=== PATIENT | female | born 1960 | race Caucasian/White ===

== ENCOUNTER 2017-07-18 10:46 | Inpatient (IN) | payer OTHER ==
[2017-07-18] MEDS: SOD CHLORIDE 0.9% 500 ML IV (12:19)
[2017-07-18] MEDS: ONDANSETRON 4 MG INJ IV (12:19)
[2017-07-18 12:21] LABS: ABNORMAL IP MESSAGE 1; HEMATOCRIT 41.9 % (37.0-47.0); HEMOGLOBIN 13.9 g/dl (12.0-16.0); MEAN CORPUSCULAR HGB CONC 33.2 g/dl (32.0-37.0); MEAN CORPUSCULAR VOLUME 99.5 fl (82.0-101.0); MEAN PLATELET VOLUME 8.7 fl (7.4-10.4); PLATELET COUNT 476 10^3/UL (140-415); RED BLOOD COUNT 4.21 10^6/ul (4.20-5.40); RED CELL DISTRIBUTION WIDTH 15.3 % (11.5-14.5)
[2017-07-18 12:21] LABS: WHITE BLOOD COUNT 38.3 10^3/ul (4.8-10.8)
[2017-07-18 12:24] LABS: ADD MAN DIFF? YES; POSITIVE DIFF @See below
[2017-07-18 12:41] LABS: INR 1.29; PROTIME 16.3 Sec (11.9-14.9); PT RATIO 1.3
[2017-07-18 12:42] LABS: PARTIAL THROMBOPLASTIN TIME 35.5 Sec (25.0-35.0)
[2017-07-18 12:44] LABS: AMMONIA 25 umol/l (9-30)
[2017-07-18 12:44] LABS: ALANINE AMINOTRANSFERASE 31 IU/L (13-69); ALBUMIN 3.3 g/dl (3.3-4.9); ALBUMIN/GLOBULIN RATIO 0.76; ALKALINE PHOSPHATASE 283 IU/L (42-121); ANION GAP 21 (8-16); ASPARTATE AMINO TRANSFERASE 60 IU/L (15-46); BILIRUBIN,INDIRECT 0.7 mg/dl (0-1.1); BILIRUBIN,TOTAL 0.7 mg/dl (0.2-1.3); BLOOD UREA NITROGEN 19 mg/dl (7-20); CALCIUM 8.5 mg/dl (8.4-10.2); CARBON DIOXIDE 20 mmol/L (21-31); CHLORIDE 97 mmol/L (97-110); CREATININE 0.81 mg/dl (0.44-1.00); GLUCOSE 170 mg/dl (70-220); LIPASE 66 U/L (23-300); POTASSIUM 4.6 mmol/L (3.5-5.1); SODIUM 133 mmol/L (135-144); TOTAL PROTEIN 7.6 g/dl (6.1-8.1)
[2017-07-18 12:57] LABS: TROPONIN-I < 0.012 ng/ml (0.00-0.12)
[2017-07-18 12:59] LABS: ANISOCYTOSIS 2+ (0-0); BAND NEUTROPHILS #M 4.2 10^3/ul (0.0-0.6); BAND NEUTROPHILS % (M) 11 % (0-4); GIANT THROMBO% (M) 1 % (0-0); LYMPHOCYTES #M 1.5 10^3/ul (0.8-2.9); LYMPHOCYTES % (M) 4 % (15-51); MONOCYTE #M 1.5 10^3/ul (0.3-0.9); MONOCYTES % (M) 4 % (0-11); PLATELET ESTIMATE INCREASED; POIKILOCYTOSIS 1+ (0-0); POLYCHROMASIA 1+ (0-0); REACTIVE LYMPHOCYTES #M 0.3 10^3/ul (0.0-0.0); REACTIVE LYMPHOCYTES% (M) 1 % (0-0); SEG NEUT #M 32.2 10^3/ul (1.7-7.5); SEGMENTED NEUTROPHILS (M) % 80 % (39-77)
[2017-07-18] MEDS: LORAZEPAM 2 MG INJ IV ×2 (13:00→23:02)
[2017-07-18] MEDS: CEFEPIME 1GM/50 ML (PMX) 50 ML IVPB (15:00)
[2017-07-18] MEDS ORDERED: ACETAMINOPHEN 650 MG SUPP PR (15:30)
[2017-07-18] MEDS ORDERED: CEFOTAXIME 2 GM/50 ML (PMX) 50 ML IVPB ×2 (15:30→22:00)
[2017-07-18] MEDS ORDERED: NACL 0.9% 3 ML SYG IV (15:30)
[2017-07-18] MEDS: VANCOMYCIN 1 GM (PMX) 250 ML IVPB (16:04)
[2017-07-18] MEDS: RIFAXIMIN 550 MG TAB PO (21:00)
[2017-07-19] MEDS: CEFOTAXIME 2 GM/50 ML (PMX) 50 ML IVPB ×4 (00:09→22:31)
[2017-07-19 06:38] LABS: ADD MAN DIFF? NO
[2017-07-19 06:42] LABS: ABNORMAL IP MESSAGE 1; BASOPHIL # 0.1 10^3/ul (0.0-0.1); BASOPHILS % 0.2 % (0.0-2.0); HEMATOCRIT 37.7 % (37.0-47.0); HEMOGLOBIN 12.7 g/dl (12.0-16.0); LYMPHOCYTES # 1.1 10^3/ul (0.8-2.9); LYMPHOCYTES % 4.7 % (15.0-51.0); MEAN CORPUSCULAR HEMOGLOBIN 33.1 pg (29.0-33.0); MEAN CORPUSCULAR HGB CONC 33.7 g/dl (32.0-37.0); MEAN CORPUSCULAR VOLUME 98.2 fl (82.0-101.0); MONOCYTE # 1.5 10^3/ul (0.3-0.9); MONOCYTES % 6.8 % (0.0-11.0); NEUTROPHIL # 19.7 10^3/ul (1.6-7.5); NEUTROPHILS % 87.7 % (39.0-77.0); PLATELET COUNT 396 10^3/UL (140-415); RED BLOOD COUNT 3.84 10^6/ul (4.20-5.40); RED CELL DISTRIBUTION WIDTH 15.8 % (11.5-14.5)
[2017-07-19 06:42] LABS: WHITE BLOOD COUNT 22.5 10^3/ul (4.8-10.8)
[2017-07-19] MEDS: PANTOPRAZOLE 40 MG INJ IV (06:47)
[2017-07-19] MEDS: LORAZEPAM 2 MG INJ IV ×2 (06:48→16:20)
[2017-07-19 06:56] LABS: POSITIVE DIFF @See below
[2017-07-19 07:22] LABS: ALANINE AMINOTRANSFERASE 30 IU/L (13-69); ALBUMIN 2.8 g/dl (3.3-4.9); ALKALINE PHOSPHATASE 222 IU/L (42-121); ANION GAP 17 (8-16); ASPARTATE AMINO TRANSFERASE 58 IU/L (15-46); BILIRUBIN,INDIRECT 0.3 mg/dl (0-1.1); BILIRUBIN,TOTAL 0.3 mg/dl (0.2-1.3); BLOOD UREA NITROGEN 25 mg/dl (7-20); CALCIUM 8.1 mg/dl (8.4-10.2); CARBON DIOXIDE 22 mmol/L (21-31); CHLORIDE 100 mmol/L (97-110); CHOL/HDL RATIO 16.3 RATIO; CHOLESTEROL 261 mg/dl (100-200); CREATININE 1.22 mg/dl (0.44-1.00); GLUCOSE 127 mg/dl (70-220); HDL CHOLESTEROL 16 mg/dl (37-92); LDL CHOLESTEROL,CALCULATED 208 mg/dl; MAGNESIUM 2.3 mg/dl (1.7-2.5); PHOSPHORUS 5.1 mg/dl (2.5-4.9); SODIUM 134 mmol/L (135-144); TOTAL PROTEIN 6.8 g/dl (6.1-8.1); TRIGLYCERIDES 186 mg/dl (0-149)
[2017-07-19 07:53] LABS: HEMOGLOBIN A1C 4.4 % (0-5.9)
[2017-07-19] MEDS: RIFAXIMIN 550 MG TAB PO ×2 (09:00→21:00)
[2017-07-19] MEDS: SPIRONOLACTONE 50 MG TAB PO (09:00)
[2017-07-19] MEDS: FUROSEMIDE 40 MG INJ IV (09:20)
[2017-07-19 12:19] LABS: HAAIG REFLEX REFLEX FILED
[2017-07-19 13:45] LABS: HEPATITIS B SURFACE ANTIBODY NEGATIVE (NEGATIVE)
[2017-07-19 14:37] LABS: HEPATITIS B CORE ANTIBODY NEGATIVE (NEGATIVE); HEPATITIS C VIRAL ANTIBODY NEGATIVE (NEGATIVE)
[2017-07-19 14:54] LABS: HEPATITIS B SURFACE ANTIGEN NEGATIVE (NEGATIVE)
[2017-07-19] MEDS: LACTULOSE ENEMA 1,000 ML BTL PR ×2 (15:28→23:48)
[2017-07-20 05:07] LABS: ADD MAN DIFF? NO
[2017-07-20 05:10] LABS: WHITE BLOOD COUNT 19.5 10^3/ul (4.8-10.8)
[2017-07-20 05:10] LABS: BASOPHILS % 0.2 % (0.0-2.0); EOSINOPHILS % 0.1 % (0.0-7.0); HEMATOCRIT 33.8 % (37.0-47.0); HEMOGLOBIN 11.6 g/dl (12.0-16.0); LYMPHOCYTES # 1.3 10^3/ul (0.8-2.9); LYMPHOCYTES % 6.5 % (15.0-51.0); MEAN CORPUSCULAR HEMOGLOBIN 33.5 pg (29.0-33.0); MEAN CORPUSCULAR HGB CONC 34.3 g/dl (32.0-37.0); MEAN CORPUSCULAR VOLUME 97.7 fl (82.0-101.0); MEAN PLATELET VOLUME 8.6 fl (7.4-10.4); MONOCYTE # 1.4 10^3/ul (0.3-0.9); MONOCYTES % 7.2 % (0.0-11.0); NEUTROPHIL # 16.7 10^3/ul (1.6-7.5); NEUTROPHILS % 85.3 % (39.0-77.0); PLATELET COUNT 268 10^3/UL (140-415); RED BLOOD COUNT 3.46 10^6/ul (4.20-5.40); RED CELL DISTRIBUTION WIDTH 15.6 % (11.5-14.5)
[2017-07-20 05:31] LABS: ANION GAP 17 (8-16); BLOOD UREA NITROGEN 32 mg/dl (7-20); CALCIUM 7.6 mg/dl (8.4-10.2); CARBON DIOXIDE 22 mmol/L (21-31); CHLORIDE 103 mmol/L (97-110); CREATININE 1.63 mg/dl (0.44-1.00); GLUCOSE 99 mg/dl (70-220); MAGNESIUM 2.3 mg/dl (1.7-2.5); POTASSIUM 4.7 mmol/L (3.5-5.1); SODIUM 137 mmol/L (135-144)
[2017-07-20] MEDS: PANTOPRAZOLE 40 MG INJ IV (06:04)
[2017-07-20] MEDS: CEFOTAXIME 2 GM/50 ML (PMX) 50 ML IVPB ×3 (06:04→21:20)
[2017-07-20] MEDS: LACTULOSE ENEMA 1,000 ML BTL PR ×3 (06:05→21:21)
[2017-07-20] MEDS: RIFAXIMIN 550 MG TAB PO ×2 (08:27→21:19)
[2017-07-20] MEDS: SPIRONOLACTONE 50 MG TAB PO (08:27)
[2017-07-20] MEDS: FUROSEMIDE 40 MG INJ IV (08:27)
[2017-07-20 11:56] LABS: ANA SCREEN NEGATIVE (NEGATIVE)
[2017-07-20] MEDS: IOHEXOL 300MG/ML 150 ML BTL ×2 (12:23→14:54)
[2017-07-20 13:26] LABS: MITOCHONDRIAL TB NEGATIVE (NEGATIVE); SMOOTH MUSCLE AB SCREEN NEGATIVE (NEGATIVE)
[2017-07-20 14:29] LABS: HEPATITIS C VIRAL ANTIBODY NEGATIVE (NEGATIVE)
[2017-07-20] MEDS: morphine 2 MG INJ IV ×2 (14:48→21:19)
[2017-07-21] MEDS: PANTOPRAZOLE 40 MG INJ IV (05:43)
[2017-07-21] MEDS: CEFOTAXIME 2 GM/50 ML (PMX) 50 ML IVPB ×3 (05:43→21:36)
[2017-07-21] MEDS: LACTULOSE ENEMA 1,000 ML BTL PR ×2 (05:44→14:09)
[2017-07-21 06:14] LABS: ADD MAN DIFF? NO
[2017-07-21 06:20] LABS: BASOPHILS % 0.2 % (0.0-2.0); EOSINOPHILS % 0.1 % (0.0-7.0); HEMATOCRIT 37.8 % (37.0-47.0); HEMOGLOBIN 12.7 g/dl (12.0-16.0); LYMPHOCYTES # 1.2 10^3/ul (0.8-2.9); LYMPHOCYTES % 5.5 % (15.0-51.0); MEAN CORPUSCULAR HEMOGLOBIN 32.8 pg (29.0-33.0); MEAN CORPUSCULAR HGB CONC 33.6 g/dl (32.0-37.0); MEAN CORPUSCULAR VOLUME 97.7 fl (82.0-101.0); MONOCYTE # 1.4 10^3/ul (0.3-0.9); MONOCYTES % 6.4 % (0.0-11.0); NEUTROPHIL # 19.4 10^3/ul (1.6-7.5); PLATELET COUNT 308 10^3/UL (140-415); RED BLOOD COUNT 3.87 10^6/ul (4.20-5.40); RED CELL DISTRIBUTION WIDTH 15.5 % (11.5-14.5)
[2017-07-21 06:20] LABS: WHITE BLOOD COUNT 22.3 10^3/ul (4.8-10.8)
[2017-07-21 06:46] LABS: LACTIC ACID 1.8 mmol/L (0.5-2.0)
[2017-07-21 06:49] LABS: PARTIAL THROMBOPLASTIN TIME 35.3 Sec (25.0-35.0)
[2017-07-21 06:52] LABS: ALANINE AMINOTRANSFERASE 31 IU/L (13-69); ALBUMIN/GLOBULIN RATIO 0.78; ALKALINE PHOSPHATASE 230 IU/L (42-121); ANION GAP 21 (8-16); ASPARTATE AMINO TRANSFERASE 52 IU/L (15-46); BLOOD UREA NITROGEN 37 mg/dl (7-20); CALCIUM 7.8 mg/dl (8.4-10.2); CARBON DIOXIDE 19 mmol/L (21-31); CHLORIDE 102 mmol/L (97-110); CREATININE 1.96 mg/dl (0.44-1.00); GLUCOSE 93 mg/dl (70-220); MAGNESIUM 2.5 mg/dl (1.7-2.5); PHOSPHORUS 5.2 mg/dl (2.5-4.9); POTASSIUM 4.4 mmol/L (3.5-5.1); SODIUM 138 mmol/L (135-144); TOTAL PROTEIN 6.8 g/dl (6.1-8.1)
[2017-07-21 07:03] LABS: INR 1.48; PROTIME 18.2 Sec (11.9-14.9); PT RATIO 1.4
[2017-07-21 07:23] LABS: B-TYPE NATRIURETIC PEPTIDE 1260 PG/ML (0-125)
[2017-07-21 07:29] LABS: BILIRUBIN,INDIRECT 0.4 mg/dl (0-1.1); BILIRUBIN,TOTAL 0.4 mg/dl (0.2-1.3)
[2017-07-21] MEDS: RIFAXIMIN 550 MG TAB PO ×2 (08:43→20:54)
[2017-07-21] MEDS: SPIRONOLACTONE 50 MG TAB PO (08:43)
[2017-07-21] MEDS: FUROSEMIDE 40 MG INJ IV (08:43)
[2017-07-21] MEDS: morphine 2 MG INJ IV ×2 (11:06→15:07)
[2017-07-21] MEDS: ALBUMIN HUMAN 25% 50 ML IV (16:30)
[2017-07-21] MEDS: ONDANSETRON 4 MG INJ IV (21:05)
[2017-07-21] MEDS: ALBUMIN HUMAN 25% 100 ML IV (22:12)
[2017-07-22] MEDS: morphine 2 MG INJ IV ×3 (00:22→18:53)
[2017-07-22] MEDS: LACTULOSE 30ML CUP PO ×4 (00:22→17:26)
[2017-07-22] MEDS: ALBUMIN HUMAN 25% 50 ML IV (01:30)
[2017-07-22] MEDS: ALBUMIN HUMAN 25% 100 ML IV ×2 (04:43→17:25)
[2017-07-22] MEDS: CEFOTAXIME 2 GM/50 ML (PMX) 50 ML IVPB ×2 (05:44→21:48)
[2017-07-22] MEDS: PANTOPRAZOLE 40 MG INJ IV (05:44)
[2017-07-22 06:33] LABS: ADD MAN DIFF? NO
[2017-07-22 06:34] LABS: BASOPHILS % 0.2 % (0.0-2.0); EOSINOPHILS # 0.1 10^3/ul (0.0-0.5); EOSINOPHILS % 0.2 % (0.0-7.0); HEMATOCRIT 31.5 % (37.0-47.0); HEMOGLOBIN 10.6 g/dl (12.0-16.0); LYMPHOCYTES # 1.1 10^3/ul (0.8-2.9); LYMPHOCYTES % 5.5 % (15.0-51.0); MEAN CORPUSCULAR HEMOGLOBIN 33.2 pg (29.0-33.0); MEAN CORPUSCULAR HGB CONC 33.7 g/dl (32.0-37.0); MEAN CORPUSCULAR VOLUME 98.7 fl (82.0-101.0); MEAN PLATELET VOLUME 8.8 fl (7.4-10.4); MONOCYTE # 1.3 10^3/ul (0.3-0.9); MONOCYTES % 6.5 % (0.0-11.0); NEUTROPHIL # 17.8 10^3/ul (1.6-7.5); PLATELET COUNT 232 10^3/UL (140-415); RED BLOOD COUNT 3.19 10^6/ul (4.20-5.40); RED CELL DISTRIBUTION WIDTH 15.1 % (11.5-14.5)
[2017-07-22 06:34] LABS: WHITE BLOOD COUNT 20.4 10^3/ul (4.8-10.8)
[2017-07-22 07:01] LABS: INR 1.73; PROTIME 20.6 Sec (11.9-14.9); PT RATIO 1.6
[2017-07-22 07:02] LABS: PARTIAL THROMBOPLASTIN TIME 39.5 Sec (25.0-35.0)
[2017-07-22 07:14] LABS: ALANINE AMINOTRANSFERASE 29 IU/L (13-69); ALBUMIN 3.1 g/dl (3.3-4.9); ALBUMIN/GLOBULIN RATIO 0.88; ALKALINE PHOSPHATASE 172 IU/L (42-121); ANION GAP 21 (8-16); ASPARTATE AMINO TRANSFERASE 52 IU/L (15-46); BILIRUBIN,INDIRECT 0.3 mg/dl (0-1.1); BILIRUBIN,TOTAL 0.3 mg/dl (0.2-1.3); BLOOD UREA NITROGEN 42 mg/dl (7-20); CALCIUM 8.1 mg/dl (8.4-10.2); CARBON DIOXIDE 18 mmol/L (21-31); CHLORIDE 101 mmol/L (97-110); CREATININE 2.36 mg/dl (0.44-1.00); GLUCOSE 83 mg/dl (70-220); MAGNESIUM 2.4 mg/dl (1.7-2.5); PHOSPHORUS 5.8 mg/dl (2.5-4.9); POTASSIUM 4.3 mmol/L (3.5-5.1); SODIUM 136 mmol/L (135-144); TOTAL PROTEIN 6.6 g/dl (6.1-8.1)
[2017-07-22 07:15] LABS: B-TYPE NATRIURETIC PEPTIDE 1270 PG/ML (0-125)
[2017-07-22] MEDS: RIFAXIMIN 550 MG TAB PO ×3 (09:00→21:40)
[2017-07-22] MEDS: ONDANSETRON 4 MG INJ IV ×2 (09:26→18:53)
[2017-07-22] MEDS: CITRIC ACID/SODIUM CITRATE 15 ML CUP PO ×2 (12:55→21:40)
[2017-07-22] MEDS: LIDOCAINE 1% (MPF) 5 ML VIAL (16:23)
[2017-07-22 17:50] LABS: FLD MN% 45.8 %; FLD PMN% 54.2 %; FLD RBC 0 /uL; FLD WBC 238 /cmm
[2017-07-22 18:37] LABS: ALBUMIN < 1.0 g/dl (3.3-4.9)
[2017-07-22 18:38] LABS: FLUID AMYLASE < 30 U/L; FLUID GLUCOSE 87 mg/dl; FLUID LD 265 U/L; FLUID TOTAL PROTEIN 2.5 g/dl; FLUID TYPE PARACENTESIS FLUID
[2017-07-22 18:48] LABS: FLD TYPE PARACENTHESIS
[2017-07-22 18:48] LABS: FLD CLARITY CLEAR; FLD COLOR YELLOW
[2017-07-22] MEDS: BALSAM PERU/CASTOR OIL 60 GM TUBE TOP (21:40)
[2017-07-23] MEDS: LACTULOSE 30ML CUP PO ×5 (00:06→23:54)
[2017-07-23] MEDS: PANTOPRAZOLE 40 MG INJ IV (06:07)
[2017-07-23 07:01] LABS: ADD MAN DIFF? NO
[2017-07-23 07:08] LABS: WHITE BLOOD COUNT 19.8 10^3/ul (4.8-10.8)
[2017-07-23 07:08] LABS: BASOPHILS % 0.2 % (0.0-2.0); EOSINOPHILS # 0.1 10^3/ul (0.0-0.5); EOSINOPHILS % 0.3 % (0.0-7.0); HEMATOCRIT 34.7 % (37.0-47.0); HEMOGLOBIN 11.8 g/dl (12.0-16.0); LYMPHOCYTES # 0.8 10^3/ul (0.8-2.9); MEAN CORPUSCULAR VOLUME 96.9 fl (82.0-101.0); MEAN PLATELET VOLUME 9.7 fl (7.4-10.4); MONOCYTE # 1.2 10^3/ul (0.3-0.9); MONOCYTES % 6.1 % (0.0-11.0); NEUTROPHIL # 17.6 10^3/ul (1.6-7.5); NEUTROPHILS % 88.8 % (39.0-77.0); PLATELET COUNT 207 10^3/UL (140-415); RED BLOOD COUNT 3.58 10^6/ul (4.20-5.40); RED CELL DISTRIBUTION WIDTH 15.3 % (11.5-14.5)
[2017-07-23 07:46] LABS: AMMONIA 31 umol/l (9-30)
[2017-07-23 07:47] LABS: ALANINE AMINOTRANSFERASE 27 IU/L (13-69); ALBUMIN 2.7 g/dl (3.3-4.9); ALKALINE PHOSPHATASE 132 IU/L (42-121); ASPARTATE AMINO TRANSFERASE 34 IU/L (15-46); BILIRUBIN,INDIRECT 0.4 mg/dl (0-1.1); BILIRUBIN,TOTAL 0.4 mg/dl (0.2-1.3); TOTAL PROTEIN 5.7 g/dl (6.1-8.1)
[2017-07-23 07:51] LABS: ANION GAP 21 (8-16); BLOOD UREA NITROGEN 46 mg/dl (7-20); CARBON DIOXIDE 19 mmol/L (21-31); CHLORIDE 102 mmol/L (97-110); CREATININE 2.68 mg/dl (0.44-1.00); GLUCOSE 92 mg/dl (70-220); MAGNESIUM 2.4 mg/dl (1.7-2.5); POTASSIUM 4.5 mmol/L (3.5-5.1); SODIUM 137 mmol/L (135-144)
[2017-07-23] MEDS: CITRIC ACID/SODIUM CITRATE 15 ML CUP PO ×2 (08:40→21:49)
[2017-07-23] MEDS: RIFAXIMIN 550 MG TAB PO ×2 (08:40→21:49)
[2017-07-23] MEDS: BALSAM PERU/CASTOR OIL 60 GM TUBE TOP ×2 (08:41→21:50)
[2017-07-23] MEDS: CEFOTAXIME 2 GM/50 ML (PMX) 50 ML IVPB ×2 (10:05→21:49)
[2017-07-23] MEDS: ONDANSETRON 4 MG INJ IV (15:43)
[2017-07-23 17:15] LABS: ADD UMIC YES; UR ASCORBIC ACID NEGATIVE (NEGATIVE); UR BILIRUBIN (Dip) 2+ mg/dL (NEGATIVE); UR BLOOD (Dip) 2+ mg/dL (NEGATIVE); UR BUDDING YEAST FEW /HPF (NONE SEEN); UR CLARITY CLOUDY (CLEAR); UR COLOR AMBER (YELLOW); UR GLUCOSE (Dip) 1+ mg/dL (NEGATIVE); UR KETONES (Dip) TRACE mg/dL (NEGATIVE); UR LEUKOCYTE ESTERASE (Dip) 1+ Leu/ul (NEGATIVE); UR MUCUS MODERATE /HPF (NONE SEEN); UR NITRITE (Dip) NEGATIVE (NEGATIVE); UR RBC 8 /HPF (0-5); UR SPECIFIC GRAVITY (Dip) 1.029 (1.003-1.030); UR SQUAMOUS EPITHELIAL CELL FEW /HPF (FEW); UR TOTAL PROTEIN (Dip) 2+ mg/dl (NEGATIVE); UR UROBILINOGEN (Dip) NEGATIVE (NEGATIVE); UR WBC 10 /HPF (0-5)
[2017-07-24] MEDS: PANTOPRAZOLE 40 MG INJ IV (05:12)
[2017-07-24] MEDS: LACTULOSE 30ML CUP PO ×4 (05:12→23:59)
[2017-07-24 06:34] LABS: ADD MAN DIFF? NO
[2017-07-24 06:39] LABS: BASOPHILS % 0.2 % (0.0-2.0); EOSINOPHILS # 0.2 10^3/ul (0.0-0.5); EOSINOPHILS % 1.1 % (0.0-7.0); HEMATOCRIT 34.7 % (37.0-47.0); HEMOGLOBIN 11.9 g/dl (12.0-16.0); LYMPHOCYTES # 1.1 10^3/ul (0.8-2.9); LYMPHOCYTES % 5.8 % (15.0-51.0); MEAN CORPUSCULAR HEMOGLOBIN 32.7 pg (29.0-33.0); MEAN CORPUSCULAR HGB CONC 34.3 g/dl (32.0-37.0); MEAN CORPUSCULAR VOLUME 95.3 fl (82.0-101.0); MEAN PLATELET VOLUME 9.9 fl (7.4-10.4); MONOCYTE # 1.2 10^3/ul (0.3-0.9); MONOCYTES % 6.3 % (0.0-11.0); NEUTROPHIL # 15.9 10^3/ul (1.6-7.5); NEUTROPHILS % 85.9 % (39.0-77.0); PLATELET COUNT 191 10^3/UL (140-415); RED BLOOD COUNT 3.64 10^6/ul (4.20-5.40); RED CELL DISTRIBUTION WIDTH 15.5 % (11.5-14.5)
[2017-07-24 06:39] LABS: WHITE BLOOD COUNT 18.5 10^3/ul (4.8-10.8)
[2017-07-24 07:09] LABS: ANION GAP 21 (8-16); BLOOD UREA NITROGEN 48 mg/dl (7-20); CARBON DIOXIDE 20 mmol/L (21-31); CHLORIDE 101 mmol/L (97-110); CREATININE 3.12 mg/dl (0.44-1.00); GLUCOSE 100 mg/dl (70-220); POTASSIUM 3.5 mmol/L (3.5-5.1); SODIUM 138 mmol/L (135-144)
[2017-07-24] MEDS: BALSAM PERU/CASTOR OIL 60 GM TUBE TOP ×2 (09:01→20:42)
[2017-07-24] MEDS: CITRIC ACID/SODIUM CITRATE 15 ML CUP PO ×2 (09:01→20:37)
[2017-07-24] MEDS: RIFAXIMIN 550 MG TAB PO ×2 (09:01→20:37)
[2017-07-24] MEDS: CEFOTAXIME 2 GM/50 ML (PMX) 50 ML IVPB ×2 (09:01→20:37)
[2017-07-24] MEDS: ONDANSETRON 4 MG INJ IV ×2 (18:19→22:13)
[2017-07-24] MEDS: CARISOPRODOL 350 MG TAB PO (22:45)
[2017-07-25] MEDS: PANTOPRAZOLE 40 MG INJ IV (05:17)
[2017-07-25] MEDS: LACTULOSE 30ML CUP PO ×4 (05:20→17:25)
[2017-07-25 06:33] LABS: ADD MAN DIFF? NO
[2017-07-25 06:40] LABS: WHITE BLOOD COUNT 16.5 10^3/ul (4.8-10.8)
[2017-07-25 06:40] LABS: BASOPHILS % 0.1 % (0.0-2.0); EOSINOPHILS # 0.4 10^3/ul (0.0-0.5); EOSINOPHILS % 2.5 % (0.0-7.0); HEMATOCRIT 36.1 % (37.0-47.0); HEMOGLOBIN 12.2 g/dl (12.0-16.0); LYMPHOCYTES # 1.1 10^3/ul (0.8-2.9); LYMPHOCYTES % 6.9 % (15.0-51.0); MEAN CORPUSCULAR HEMOGLOBIN 32.4 pg (29.0-33.0); MEAN CORPUSCULAR HGB CONC 33.8 g/dl (32.0-37.0); MONOCYTE # 1.1 10^3/ul (0.3-0.9); MONOCYTES % 6.9 % (0.0-11.0); NEUTROPHIL # 13.7 10^3/ul (1.6-7.5); NEUTROPHILS % 82.8 % (39.0-77.0); PLATELET COUNT 152 10^3/UL (140-415); RED BLOOD COUNT 3.76 10^6/ul (4.20-5.40); RED CELL DISTRIBUTION WIDTH 15.1 % (11.5-14.5)
[2017-07-25 07:09] LABS: ANION GAP 19 (8-16); BLOOD UREA NITROGEN 47 mg/dl (7-20); CALCIUM 7.4 mg/dl (8.4-10.2); CARBON DIOXIDE 21 mmol/L (21-31); CHLORIDE 100 mmol/L (97-110); CREATININE 3.34 mg/dl (0.44-1.00); GLUCOSE 116 mg/dl (70-220); SODIUM 137 mmol/L (135-144)
[2017-07-25] MEDS: CEFOTAXIME 2 GM/50 ML (PMX) 50 ML IVPB ×2 (08:28→20:10)
[2017-07-25] MEDS: BALSAM PERU/CASTOR OIL 60 GM TUBE TOP ×2 (08:29→20:11)
[2017-07-25] MEDS: CITRIC ACID/SODIUM CITRATE 15 ML CUP PO ×2 (08:29→20:10)
[2017-07-25] MEDS: RIFAXIMIN 550 MG TAB PO ×2 (08:29→20:10)
[2017-07-25] MEDS: POTASSIUM CHLORIDE (SR) 20 MEQ TAB PO (09:07)
[2017-07-25] MEDS: morphine 2 MG INJ IV (09:39)
[2017-07-25] MEDS: CARISOPRODOL 350 MG TAB PO (15:34)
[2017-07-26] MEDS: LACTULOSE 30ML CUP PO ×4 (00:16→18:00)
[2017-07-26] MEDS: morphine 2 MG INJ IV ×4 (00:17→18:32)
[2017-07-26] MEDS: CARISOPRODOL 350 MG TAB PO (03:40)
[2017-07-26] MEDS: PANTOPRAZOLE 40 MG INJ IV (06:03)
[2017-07-26 06:10] LABS: ADD MAN DIFF? NO
[2017-07-26 06:24] LABS: BASOPHILS % 0.2 % (0.0-2.0); EOSINOPHILS # 0.5 10^3/ul (0.0-0.5); EOSINOPHILS % 2.8 % (0.0-7.0); HEMATOCRIT 37.2 % (37.0-47.0); HEMOGLOBIN 12.3 g/dl (12.0-16.0); LYMPHOCYTES # 1.2 10^3/ul (0.8-2.9); LYMPHOCYTES % 6.9 % (15.0-51.0); MEAN CORPUSCULAR HEMOGLOBIN 32.2 pg (29.0-33.0); MEAN CORPUSCULAR HGB CONC 33.1 g/dl (32.0-37.0); MEAN CORPUSCULAR VOLUME 97.4 fl (82.0-101.0); MEAN PLATELET VOLUME 9.3 fl (7.4-10.4); MONOCYTE # 1.3 10^3/ul (0.3-0.9); MONOCYTES % 7.3 % (0.0-11.0); NEUTROPHIL # 14.5 10^3/ul (1.6-7.5); NEUTROPHILS % 81.8 % (39.0-77.0); PLATELET COUNT 124 10^3/UL (140-415); RED BLOOD COUNT 3.82 10^6/ul (4.20-5.40)
[2017-07-26 06:24] LABS: WHITE BLOOD COUNT 17.8 10^3/ul (4.8-10.8)
[2017-07-26] MEDS: CITRIC ACID/SODIUM CITRATE 15 ML CUP PO ×2 (09:05→21:29)
[2017-07-26] MEDS: CEFOTAXIME 2 GM/50 ML (PMX) 50 ML IVPB ×2 (09:05→21:28)
[2017-07-26] MEDS: RIFAXIMIN 550 MG TAB PO ×2 (09:05→21:29)
[2017-07-26] MEDS: BALSAM PERU/CASTOR OIL 60 GM TUBE TOP ×2 (09:05→21:29)
[2017-07-26 09:27] LABS: BLOOD UREA NITROGEN 48 mg/dl (7-20); CALCIUM 7.8 mg/dl (8.4-10.2); CARBON DIOXIDE 21 mmol/L (21-31); CHLORIDE 99 mmol/L (97-110); CREATININE 3.54 mg/dl (0.44-1.00); GLUCOSE 126 mg/dl (70-220); SODIUM 135 mmol/L (135-144)
[2017-07-26 09:36] LABS: ANION GAP 18 (8-16); POTASSIUM 3.1 mmol/L (3.5-5.1)
[2017-07-26] MEDS: FLUCONAZOLE 200 MG TAB PO (09:55)
[2017-07-27] MEDS: LACTULOSE 30ML CUP PO ×4 (00:10→21:31)
[2017-07-27] MEDS: morphine 2 MG INJ IV ×4 (00:12→21:32)
[2017-07-27] MEDS: PANTOPRAZOLE 40 MG INJ IV (06:07)
[2017-07-27 06:22] LABS: ADD MAN DIFF? NO
[2017-07-27 06:30] LABS: BASOPHILS % 0.2 % (0.0-2.0); EOSINOPHILS # 0.4 10^3/ul (0.0-0.5); EOSINOPHILS % 1.8 % (0.0-7.0); HEMATOCRIT 36.8 % (37.0-47.0); HEMOGLOBIN 12.5 g/dl (12.0-16.0); LYMPHOCYTES # 1.2 10^3/ul (0.8-2.9); LYMPHOCYTES % 5.5 % (15.0-51.0); MEAN CORPUSCULAR HEMOGLOBIN 32.7 pg (29.0-33.0); MEAN CORPUSCULAR VOLUME 96.3 fl (82.0-101.0); MEAN PLATELET VOLUME 10.5 fl (7.4-10.4); MONOCYTE # 1.4 10^3/ul (0.3-0.9); MONOCYTES % 6.1 % (0.0-11.0); NEUTROPHILS % 85.4 % (39.0-77.0); PLATELET COUNT 115 10^3/UL (140-415); RED BLOOD COUNT 3.82 10^6/ul (4.20-5.40)
[2017-07-27 06:30] LABS: WHITE BLOOD COUNT 22.3 10^3/ul (4.8-10.8)
[2017-07-27 07:01] LABS: ANION GAP 20 (8-16); BLOOD UREA NITROGEN 48 mg/dl (7-20); CALCIUM 7.5 mg/dl (8.4-10.2); CARBON DIOXIDE 20 mmol/L (21-31); CHLORIDE 102 mmol/L (97-110); CREATININE 3.76 mg/dl (0.44-1.00); GLUCOSE 117 mg/dl (70-220); SODIUM 139 mmol/L (135-144)
[2017-07-27 07:45] LABS: POTASSIUM 2.7 mmol/L (3.5-5.1)
[2017-07-27] MEDS: CITRIC ACID/SODIUM CITRATE 15 ML CUP PO ×2 (09:50→21:30)
[2017-07-27] MEDS: CEFOTAXIME 2 GM/50 ML (PMX) 50 ML IVPB ×2 (09:50→21:30)
[2017-07-27] MEDS: BALSAM PERU/CASTOR OIL 60 GM TUBE TOP ×2 (09:52→21:32)
[2017-07-27] MEDS: RIFAXIMIN 550 MG TAB PO ×2 (09:52→21:31)
[2017-07-27] MEDS: FLUCONAZOLE 200 MG TAB PO (09:52)
[2017-07-27] MEDS: POTASSIUM CHLORIDE 50 ML IVPB ×3 (10:49→15:13)
[2017-07-27] MEDS: THIAMINE 100 MG TAB PO (17:19)
[2017-07-27] MEDS: POTASSIUM CHLORIDE 20 MEQ POWDER FOR ORAL SOLN PO ×2 (17:19→23:52)
[2017-07-28 06:09] LABS: ADD MAN DIFF? NO
[2017-07-28 06:14] LABS: WHITE BLOOD COUNT 23.5 10^3/ul (4.8-10.8)
[2017-07-28 06:14] LABS: ABNORMAL IP MESSAGE 1; BASOPHIL # 0.1 10^3/ul (0.0-0.1); BASOPHILS % 0.2 % (0.0-2.0); EOSINOPHILS # 0.3 10^3/ul (0.0-0.5); EOSINOPHILS % 1.4 % (0.0-7.0); HEMATOCRIT 35.1 % (37.0-47.0); HEMOGLOBIN 12.1 g/dl (12.0-16.0); LYMPHOCYTES # 1.2 10^3/ul (0.8-2.9); LYMPHOCYTES % 5.2 % (15.0-51.0); MEAN CORPUSCULAR HEMOGLOBIN 32.5 pg (29.0-33.0); MEAN CORPUSCULAR HGB CONC 34.5 g/dl (32.0-37.0); MEAN CORPUSCULAR VOLUME 94.4 fl (82.0-101.0); MEAN PLATELET VOLUME 10.6 fl (7.4-10.4); MONOCYTE # 1.5 10^3/ul (0.3-0.9); MONOCYTES % 6.4 % (0.0-11.0); NEUTROPHIL # 20.1 10^3/ul (1.6-7.5); NEUTROPHILS % 85.9 % (39.0-77.0); RED BLOOD COUNT 3.72 10^6/ul (4.20-5.40); RED CELL DISTRIBUTION WIDTH 14.9 % (11.5-14.5)
[2017-07-28 06:22] LABS: POSITIVE DIFF @See below
[2017-07-28 06:23] LABS: PLATELET COUNT 92 10^3/UL (140-415)
[2017-07-28] MEDS: PANTOPRAZOLE (EC) 40 MG TAB PO (06:29)
[2017-07-28] MEDS: morphine 2 MG INJ IV ×2 (06:35→20:33)
[2017-07-28 06:39] LABS: INR 1.62; PROTIME 19.6 Sec (11.9-14.9); PT RATIO 1.5
[2017-07-28 08:07] LABS: ALANINE AMINOTRANSFERASE 29 IU/L (13-69); ALBUMIN 2.2 g/dl (3.3-4.9); ALBUMIN/GLOBULIN RATIO 0.64; ALKALINE PHOSPHATASE 200 IU/L (42-121); ANION GAP 21 (8-16); ASPARTATE AMINO TRANSFERASE 37 IU/L (15-46); BILIRUBIN,INDIRECT 0.2 mg/dl (0-1.1); BILIRUBIN,TOTAL 0.2 mg/dl (0.2-1.3); BLOOD UREA NITROGEN 48 mg/dl (7-20); CALCIUM 8.2 mg/dl (8.4-10.2); CARBON DIOXIDE 17 mmol/L (21-31); CHLORIDE 104 mmol/L (97-110); CREATININE 3.96 mg/dl (0.44-1.00); GLUCOSE 108 mg/dl (70-220); MAGNESIUM 1.8 mg/dl (1.7-2.5); PHOSPHORUS 4.8 mg/dl (2.5-4.9); POTASSIUM 4.9 mmol/L (3.5-5.1); SODIUM 137 mmol/L (135-144); TOTAL PROTEIN 5.6 g/dl (6.1-8.1)
[2017-07-28] MEDS ORDERED: ENOXAPARIN 30 MG/0.3 ML SYG SC (09:00)
[2017-07-28] MEDS: POTASSIUM CHLORIDE 20 MEQ POWDER FOR ORAL SOLN PO ×3 (09:00→20:29)
[2017-07-28] MEDS: THIAMINE 100 MG TAB PO (09:09)
[2017-07-28] MEDS: LACTULOSE 30ML CUP PO ×2 (09:09→20:30)
[2017-07-28] MEDS: CITRIC ACID/SODIUM CITRATE 15 ML CUP PO ×2 (09:09→20:30)
[2017-07-28] MEDS: FLUCONAZOLE 200 MG TAB PO (09:09)
[2017-07-28] MEDS: RIFAXIMIN 550 MG TAB PO ×2 (09:11→20:29)
[2017-07-28] MEDS: HEPARIN 5,000 UNIT/0.5 ML VIAL SC ×2 (09:12→20:32)
[2017-07-28] MEDS: CEFOTAXIME 2 GM/50 ML (PMX) 50 ML IVPB ×2 (09:15→20:29)
[2017-07-28] MEDS: BALSAM PERU/CASTOR OIL 60 GM TUBE TOP ×2 (09:16→20:36)
[2017-07-28] MEDS: SOD CHLORIDE 0.9% 1,000 ML IV (14:46)
[2017-07-28] MEDS: BARIUM SULF 2% 450 ML BTL (BERRY SMOOTHIE) PO (16:00)
[2017-07-29] MEDS: PANTOPRAZOLE (EC) 40 MG TAB PO (05:50)
[2017-07-29 06:19] LABS: ADD MAN DIFF? NO
[2017-07-29 06:45] LABS: ABNORMAL IP MESSAGE 1; BASOPHIL # 0.1 10^3/ul (0.0-0.1); BASOPHILS % 0.2 % (0.0-2.0); EOSINOPHILS # 0.2 10^3/ul (0.0-0.5); EOSINOPHILS % 0.8 % (0.0-7.0); HEMOGLOBIN 11.4 g/dl (12.0-16.0); LYMPHOCYTES # 1.6 10^3/ul (0.8-2.9); MEAN CORPUSCULAR HGB CONC 34.5 g/dl (32.0-37.0); MEAN CORPUSCULAR VOLUME 92.7 fl (82.0-101.0); MEAN PLATELET VOLUME 11.4 fl (7.4-10.4); MONOCYTE # 1.7 10^3/ul (0.3-0.9); MONOCYTES % 6.4 % (0.0-11.0); NEUTROPHIL # 22.3 10^3/ul (1.6-7.5); NEUTROPHILS % 85.8 % (39.0-77.0); PLATELET COUNT 111 10^3/UL (140-415); RED BLOOD COUNT 3.56 10^6/ul (4.20-5.40); RED CELL DISTRIBUTION WIDTH 14.6 % (11.5-14.5)
[2017-07-29 07:00] LABS: ANION GAP 20 (8-16); BLOOD UREA NITROGEN 51 mg/dl (7-20); CALCIUM 8.2 mg/dl (8.4-10.2); CARBON DIOXIDE 21 mmol/L (21-31); CHLORIDE 103 mmol/L (97-110); CREATININE 3.99 mg/dl (0.44-1.00); GLUCOSE 89 mg/dl (70-220); SODIUM 138 mmol/L (135-144)
[2017-07-29 07:05] LABS: POTASSIUM 6.1 mmol/L (3.5-5.1)
[2017-07-29 07:10] LABS: POSITIVE DIFF @See below
[2017-07-29] MEDS: CEFOTAXIME 2 GM/50 ML (PMX) 50 ML IVPB ×2 (10:00→22:15)
[2017-07-29] MEDS: CITRIC ACID/SODIUM CITRATE 15 ML CUP PO ×2 (10:20→22:15)
[2017-07-29] MEDS: THIAMINE 100 MG TAB PO (10:20)
[2017-07-29] MEDS: LACTULOSE 30ML CUP PO ×2 (10:20→22:15)
[2017-07-29] MEDS: FLUCONAZOLE 200 MG TAB PO (10:21)
[2017-07-29] MEDS: RIFAXIMIN 550 MG TAB PO ×2 (10:21→22:15)
[2017-07-29] MEDS: BALSAM PERU/CASTOR OIL 60 GM TUBE TOP ×2 (10:22→22:17)
[2017-07-29] MEDS: SOD CHLORIDE 0.9% 1,000 ML IV (10:22)
[2017-07-29] MEDS: HEPARIN 5,000 UNIT/0.5 ML VIAL SC (10:23)
[2017-07-29 11:06] LABS: AMMONIA < 9 umol/l (9-30)
[2017-07-29] MEDS: NA POLYST SULFON 15 GM/60 ML BTL PO (12:14)
[2017-07-29] MEDS: IOHEXOL 14.3 MG(I)/ML (ADULT) BTL PO (14:30)
[2017-07-29] MEDS ORDERED: IOHEXOL 14.3 MG(I)/ML (ADULT) BTL PO (14:30)
[2017-07-29] MEDS: morphine 2 MG INJ IV (22:17)
[2017-07-30 00:03] LABS: POTASSIUM 5.2 mmol/L (3.5-5.1)
[2017-07-30] MEDS: SOD CHLORIDE 0.9% 1,000 ML IV ×2 (05:35→12:36)
[2017-07-30] MEDS: PANTOPRAZOLE (EC) 40 MG TAB PO (05:36)
[2017-07-30 08:09] LABS: ALANINE AMINOTRANSFERASE 34 IU/L (13-69); ALBUMIN/GLOBULIN RATIO 0.64; ALKALINE PHOSPHATASE 216 IU/L (42-121); ANION GAP 18 (8-16); ASPARTATE AMINO TRANSFERASE 41 IU/L (15-46); BILIRUBIN,INDIRECT 0.2 mg/dl (0-1.1); BILIRUBIN,TOTAL 0.2 mg/dl (0.2-1.3); BLOOD UREA NITROGEN 51 mg/dl (7-20); CALCIUM 8.1 mg/dl (8.4-10.2); CARBON DIOXIDE 20 mmol/L (21-31); CHLORIDE 104 mmol/L (97-110); CREATININE 3.85 mg/dl (0.44-1.00); GLUCOSE 86 mg/dl (70-220); POTASSIUM 4.6 mmol/L (3.5-5.1); SODIUM 137 mmol/L (135-144); TOTAL PROTEIN 5.1 g/dl (6.1-8.1)
[2017-07-30 08:10] LABS: AMMONIA < 9 umol/l (9-30)
[2017-07-30 08:32] LABS: ADD MAN DIFF? NO
[2017-07-30 08:34] LABS: PHOSPHORUS 5.2 mg/dl (2.5-4.9)
[2017-07-30 08:34] LABS: MAGNESIUM 1.7 mg/dl (1.7-2.5)
[2017-07-30 08:38] LABS: WHITE BLOOD COUNT 20.8 10^3/ul (4.8-10.8)
[2017-07-30 08:38] LABS: ABNORMAL IP MESSAGE 1; BASOPHILS % 0.2 % (0.0-2.0); EOSINOPHILS # 0.2 10^3/ul (0.0-0.5); EOSINOPHILS % 0.9 % (0.0-7.0); HEMATOCRIT 30.3 % (37.0-47.0); HEMOGLOBIN 10.8 g/dl (12.0-16.0); LYMPHOCYTES # 1.6 10^3/ul (0.8-2.9); LYMPHOCYTES % 7.7 % (15.0-51.0); MEAN CORPUSCULAR HEMOGLOBIN 32.4 pg (29.0-33.0); MEAN CORPUSCULAR HGB CONC 35.6 g/dl (32.0-37.0); MEAN PLATELET VOLUME 10.5 fl (7.4-10.4); MONOCYTE # 1.4 10^3/ul (0.3-0.9); MONOCYTES % 6.9 % (0.0-11.0); NEUTROPHIL # 17.4 10^3/ul (1.6-7.5); NEUTROPHILS % 83.7 % (39.0-77.0); PLATELET COUNT 98 10^3/UL (140-415); RED BLOOD COUNT 3.33 10^6/ul (4.20-5.40); RED CELL DISTRIBUTION WIDTH 14.6 % (11.5-14.5)
[2017-07-30] MEDS: BALSAM PERU/CASTOR OIL 60 GM TUBE TOP ×2 (09:00→20:44)
[2017-07-30] MEDS: CEFOTAXIME 2 GM/50 ML (PMX) 50 ML IVPB (09:26)
[2017-07-30] MEDS: LACTULOSE 30ML CUP PO (09:32)
[2017-07-30] MEDS: RIFAXIMIN 550 MG TAB PO ×2 (09:32→20:43)
[2017-07-30] MEDS: CITRIC ACID/SODIUM CITRATE 15 ML CUP PO ×2 (09:32→20:43)
[2017-07-30] MEDS: FLUCONAZOLE 200 MG TAB PO (09:32)
[2017-07-30] MEDS: THIAMINE 100 MG TAB PO (09:32)
[2017-07-30 11:33] LABS: ADD MAN DIFF? NO
[2017-07-30 11:36] LABS: BASOPHILS % 0.2 % (0.0-2.0); EOSINOPHILS # 0.1 10^3/ul (0.0-0.5); EOSINOPHILS % 0.7 % (0.0-7.0); HEMATOCRIT 31.1 % (37.0-47.0); HEMOGLOBIN 10.8 g/dl (12.0-16.0); LYMPHOCYTES # 1.5 10^3/ul (0.8-2.9); MEAN CORPUSCULAR HEMOGLOBIN 32.6 pg (29.0-33.0); MEAN CORPUSCULAR HGB CONC 34.7 g/dl (32.0-37.0); MEAN PLATELET VOLUME 11.1 fl (7.4-10.4); MONOCYTE # 1.2 10^3/ul (0.3-0.9); MONOCYTES % 6.2 % (0.0-11.0); NEUTROPHIL # 15.9 10^3/ul (1.6-7.5); NEUTROPHILS % 84.3 % (39.0-77.0); PLATELET COUNT 101 10^3/UL (140-415); RED BLOOD COUNT 3.31 10^6/ul (4.20-5.40); RED CELL DISTRIBUTION WIDTH 14.8 % (11.5-14.5)
[2017-07-30 11:36] LABS: WHITE BLOOD COUNT 18.9 10^3/ul (4.8-10.8)
[2017-07-30 11:59] LABS: INR 1.84; PROTIME 21.7 Sec (11.9-14.9); PT RATIO 1.7
[2017-07-30 12:00] LABS: PARTIAL THROMBOPLASTIN TIME 47.7 Sec (25.0-35.0)
[2017-07-30 12:06] LABS: MAGNESIUM 1.8 mg/dl (1.7-2.5)
[2017-07-30 12:06] LABS: PHOSPHORUS 5.3 mg/dl (2.5-4.9)
[2017-07-30 12:19] LABS: ALANINE AMINOTRANSFERASE 34 IU/L (13-69); ALBUMIN 2.1 g/dl (3.3-4.9); ALBUMIN/GLOBULIN RATIO 0.61; ALKALINE PHOSPHATASE 213 IU/L (42-121); AMYLASE 35 U/L (11-123); ANION GAP 19 (8-16); ASPARTATE AMINO TRANSFERASE 42 IU/L (15-46); BILIRUBIN,INDIRECT 0.1 mg/dl (0-1.1); BILIRUBIN,TOTAL 0.1 mg/dl (0.2-1.3); BLOOD UREA NITROGEN 51 mg/dl (7-20); CALCIUM 8.4 mg/dl (8.4-10.2); CARBON DIOXIDE 22 mmol/L (21-31); CHLORIDE 102 mmol/L (97-110); CREATININE 4.31 mg/dl (0.44-1.00); GLUCOSE 138 mg/dl (70-220); LIPASE 54 U/L (23-300); POTASSIUM 4.9 mmol/L (3.5-5.1); SODIUM 138 mmol/L (135-144); TOTAL PROTEIN 5.5 g/dl (6.1-8.1)
[2017-07-30] MEDS: LIDOCAINE 1% (MPF) 5 ML VIAL (13:32)
[2017-07-30 13:46] LABS: FLD MN% 55.6 %; FLD PMN% 44.4 %; FLD RBC 1000 /uL; FLD WBC 72 /cmm
[2017-07-30] MEDS: ALBUMIN HUMAN 25% 100 ML IV (13:57)
[2017-07-30] MEDS: morphine 2 MG INJ IV ×2 (14:27→23:42)
[2017-07-30 14:30] LABS: FLD TYPE PARACENTHESIS
[2017-07-30 14:30] LABS: FLD CLARITY CLEAR
[2017-07-30 14:31] LABS: FLD COLOR YELLOW
[2017-07-30] MEDS: MEROPENEM 500MG/50 ML (PMX) 50 ML IVPB (16:37)
[2017-07-31] MEDS: SOD CHLORIDE 0.9% 1,000 ML IV (02:00)
[2017-07-31] MEDS: PANTOPRAZOLE (EC) 40 MG TAB PO (05:29)
[2017-07-31] MEDS: morphine 2 MG INJ IV ×2 (05:29→12:46)
[2017-07-31 06:31] LABS: ADD MAN DIFF? NO
[2017-07-31 06:37] LABS: ABNORMAL IP MESSAGE 1; BASOPHILS % 0.2 % (0.0-2.0); EOSINOPHILS # 0.3 10^3/ul (0.0-0.5); EOSINOPHILS % 2.2 % (0.0-7.0); HEMATOCRIT 28.2 % (37.0-47.0); HEMOGLOBIN 9.9 g/dl (12.0-16.0); LYMPHOCYTES # 1.3 10^3/ul (0.8-2.9); LYMPHOCYTES % 10.5 % (15.0-51.0); MEAN CORPUSCULAR HEMOGLOBIN 32.6 pg (29.0-33.0); MEAN CORPUSCULAR HGB CONC 35.1 g/dl (32.0-37.0); MEAN CORPUSCULAR VOLUME 92.8 fl (82.0-101.0); MONOCYTE # 1.1 10^3/ul (0.3-0.9); MONOCYTES % 8.6 % (0.0-11.0); NEUTROPHIL # 9.7 10^3/ul (1.6-7.5); PLATELET COUNT 66 10^3/UL (140-415); RED BLOOD COUNT 3.04 10^6/ul (4.20-5.40)
[2017-07-31 06:37] LABS: WHITE BLOOD COUNT 12.5 10^3/ul (4.8-10.8)
[2017-07-31 06:52] LABS: POSITIVE DIFF @See below
[2017-07-31 06:56] LABS: INR 1.98; PT RATIO 1.8
[2017-07-31 06:57] LABS: PARTIAL THROMBOPLASTIN TIME 47.9 Sec (25.0-35.0)
[2017-07-31 07:03] LABS: LACTIC ACID 3.6 mmol/L (0.5-2.0)
[2017-07-31 07:10] LABS: B-TYPE NATRIURETIC PEPTIDE 5420 PG/ML (0-125)
[2017-07-31 07:21] LABS: ALANINE AMINOTRANSFERASE 29 IU/L (13-69); ALBUMIN 2.2 g/dl (3.3-4.9); ALBUMIN/GLOBULIN RATIO 0.73; ALKALINE PHOSPHATASE 193 IU/L (42-121); ANION GAP 18 (8-16); ASPARTATE AMINO TRANSFERASE 42 IU/L (15-46); BILIRUBIN,INDIRECT 0.1 mg/dl (0-1.1); BILIRUBIN,TOTAL 0.1 mg/dl (0.2-1.3); BLOOD UREA NITROGEN 49 mg/dl (7-20); CALCIUM 8.3 mg/dl (8.4-10.2); CARBON DIOXIDE 20 mmol/L (21-31); CHLORIDE 102 mmol/L (97-110); CREATININE 4.09 mg/dl (0.44-1.00); GLUCOSE 121 mg/dl (70-220); LIPASE 77 U/L (23-300); MAGNESIUM 1.6 mg/dl (1.7-2.5); PHOSPHORUS 4.6 mg/dl (2.5-4.9); POTASSIUM 4.2 mmol/L (3.5-5.1); SODIUM 136 mmol/L (135-144); TOTAL PROTEIN 5.2 g/dl (6.1-8.1)
[2017-07-31 07:26] LABS: AMYLASE < 30 U/L (11-123)
[2017-07-31] MEDS: SOD CHLORIDE 0.9% 500 ML IV (08:19)
[2017-07-31] MEDS: CITRIC ACID/SODIUM CITRATE 15 ML CUP PO ×2 (08:20→21:44)
[2017-07-31] MEDS: THIAMINE 100 MG TAB PO (08:20)
[2017-07-31] MEDS: RIFAXIMIN 550 MG TAB PO ×2 (08:20→21:44)
[2017-07-31] MEDS: FLUCONAZOLE 200 MG TAB PO (08:26)
[2017-07-31 10:27] LABS: AMMONIA < 9 umol/l (9-30)
[2017-07-31] MEDS: BALSAM PERU/CASTOR OIL 60 GM TUBE TOP ×2 (12:46→21:46)
[2017-07-31 16:14] LABS: LACTIC ACID 3.2 mmol/L (0.5-2.0)
[2017-07-31] MEDS: MEROPENEM 500MG/50 ML (PMX) 50 ML IVPB (16:42)
[2017-07-31] MEDS: ALBUMIN HUMAN 25% 100 ML IV (17:55)
[2017-08-01] MEDS: morphine 2 MG INJ IV (00:10)
[2017-08-01] MEDS: ALBUMIN HUMAN 25% 100 ML IV ×2 (01:43→09:03)
[2017-08-01 06:38] LABS: ADD MAN DIFF? NO
[2017-08-01] MEDS: PANTOPRAZOLE (EC) 40 MG TAB PO (06:38)
[2017-08-01 06:49] LABS: WHITE BLOOD COUNT 11.8 10^3/ul (4.8-10.8)
[2017-08-01 06:49] LABS: ABNORMAL IP MESSAGE 1; BASOPHILS % 0.2 % (0.0-2.0); EOSINOPHILS # 0.2 10^3/ul (0.0-0.5); EOSINOPHILS % 1.9 % (0.0-7.0); HEMATOCRIT 25.8 % (37.0-47.0); LYMPHOCYTES # 1.3 10^3/ul (0.8-2.9); LYMPHOCYTES % 10.6 % (15.0-51.0); MEAN CORPUSCULAR HEMOGLOBIN 32.8 pg (29.0-33.0); MEAN CORPUSCULAR HGB CONC 34.9 g/dl (32.0-37.0); MEAN CORPUSCULAR VOLUME 94.2 fl (82.0-101.0); MEAN PLATELET VOLUME 10.7 fl (7.4-10.4); MONOCYTES % 8.6 % (0.0-11.0); NEUTROPHIL # 9.3 10^3/ul (1.6-7.5); NEUTROPHILS % 78.4 % (39.0-77.0); RED BLOOD COUNT 2.74 10^6/ul (4.20-5.40); RED CELL DISTRIBUTION WIDTH 14.9 % (11.5-14.5)
[2017-08-01 06:58] LABS: PLATELET COUNT 53 10^3/UL (140-415); POSITIVE DIFF @See below
[2017-08-01 07:21] LABS: ALANINE AMINOTRANSFERASE 33 IU/L (13-69); ALBUMIN 2.6 g/dl (3.3-4.9); ALBUMIN/GLOBULIN RATIO 1.04; ALKALINE PHOSPHATASE 164 IU/L (42-121); ANION GAP 22 (8-16); ASPARTATE AMINO TRANSFERASE 35 IU/L (15-46); BILIRUBIN,INDIRECT 0.3 mg/dl (0-1.1); BILIRUBIN,TOTAL 0.3 mg/dl (0.2-1.3); BLOOD UREA NITROGEN 46 mg/dl (7-20); CALCIUM 8.5 mg/dl (8.4-10.2); CARBON DIOXIDE 19 mmol/L (21-31); CHLORIDE 99 mmol/L (97-110); CREATININE 4.06 mg/dl (0.44-1.00); GLUCOSE 129 mg/dl (70-220); POTASSIUM 3.5 mmol/L (3.5-5.1); SODIUM 136 mmol/L (135-144); TOTAL PROTEIN 5.1 g/dl (6.1-8.1)
[2017-08-01 07:22] LABS: MAGNESIUM 1.5 mg/dl (1.7-2.5)
[2017-08-01 07:22] LABS: PHOSPHORUS 4.1 mg/dl (2.5-4.9)
[2017-08-01] MEDS: CITRIC ACID/SODIUM CITRATE 15 ML CUP PO ×2 (09:00→21:04)
[2017-08-01] MEDS: THIAMINE 100 MG TAB PO (09:01)
[2017-08-01] MEDS: FLUCONAZOLE 200 MG TAB PO (09:01)
[2017-08-01] MEDS: RIFAXIMIN 550 MG TAB PO ×2 (09:01→21:04)
[2017-08-01] MEDS: BALSAM PERU/CASTOR OIL 60 GM TUBE TOP ×2 (09:04→22:20)
[2017-08-01] MEDS: MAGNESIUM SULFATE 2 GM/50 ML 50 ML IVPB (10:07)
[2017-08-01] MEDS ORDERED: BISACODYL (EC) 5 MG TAB PO (16:30)
[2017-08-01] MEDS ORDERED: MAGNESIUM CITRATE 300 ML BTL PO (17:30)
[2017-08-01] MEDS: MEROPENEM 500MG/50 ML (PMX) 50 ML IVPB (17:59)
[2017-08-01] MEDS ORDERED: POLYETHYLENE GLYCOL 3350 119 GM POWDER PO (18:30)
[2017-08-02 05:58] LABS: ADD MAN DIFF? NO
[2017-08-02] MEDS ORDERED: POLYETHYLENE GLYCOL 3350 119 GM POWDER PO (06:00)
[2017-08-02] MEDS: PANTOPRAZOLE (EC) 40 MG TAB PO (06:08)
[2017-08-02 06:10] LABS: WHITE BLOOD COUNT 12.5 10^3/ul (4.8-10.8)
[2017-08-02 06:10] LABS: ABNORMAL IP MESSAGE 1; BASOPHILS % 0.2 % (0.0-2.0); EOSINOPHILS # 0.2 10^3/ul (0.0-0.5); EOSINOPHILS % 1.7 % (0.0-7.0); HEMATOCRIT 24.6 % (37.0-47.0); HEMOGLOBIN 8.8 g/dl (12.0-16.0); LYMPHOCYTES % 7.6 % (15.0-51.0); MEAN CORPUSCULAR HEMOGLOBIN 32.1 pg (29.0-33.0); MEAN CORPUSCULAR HGB CONC 35.8 g/dl (32.0-37.0); MEAN CORPUSCULAR VOLUME 89.8 fl (82.0-101.0); MEAN PLATELET VOLUME 11.9 fl (7.4-10.4); MONOCYTE # 1.1 10^3/ul (0.3-0.9); MONOCYTES % 8.5 % (0.0-11.0); NEUTROPHIL # 10.2 10^3/ul (1.6-7.5); NEUTROPHILS % 81.5 % (39.0-77.0); PLATELET COUNT 50 10^3/UL (140-415); RED BLOOD COUNT 2.74 10^6/ul (4.20-5.40); RED CELL DISTRIBUTION WIDTH 14.5 % (11.5-14.5)
[2017-08-02 06:25] LABS: AMMONIA 19 umol/l (9-30)
[2017-08-02 06:34] LABS: ALANINE AMINOTRANSFERASE 28 IU/L (13-69); ALBUMIN 2.5 g/dl (3.3-4.9); ALBUMIN/GLOBULIN RATIO 1.04; ALKALINE PHOSPHATASE 159 IU/L (42-121); ANION GAP 19 (8-16); ASPARTATE AMINO TRANSFERASE 34 IU/L (15-46); BILIRUBIN,INDIRECT 0.4 mg/dl (0-1.1); BILIRUBIN,TOTAL 0.4 mg/dl (0.2-1.3); BLOOD UREA NITROGEN 49 mg/dl (7-20); CALCIUM 8.7 mg/dl (8.4-10.2); CARBON DIOXIDE 21 mmol/L (21-31); CHLORIDE 99 mmol/L (97-110); CREATININE 4.26 mg/dl (0.44-1.00); GLUCOSE 94 mg/dl (70-220); POSITIVE DIFF @See below; POTASSIUM 3.7 mmol/L (3.5-5.1); SODIUM 135 mmol/L (135-144); TOTAL PROTEIN 4.9 g/dl (6.1-8.1)
[2017-08-02 06:58] LABS: PHOSPHORUS 4.2 mg/dl (2.5-4.9)
[2017-08-02 06:58] LABS: MAGNESIUM 2.1 mg/dl (1.7-2.5)
[2017-08-02] MEDS ORDERED: BISACODYL (EC) 5 MG TAB PO (08:00)
[2017-08-02] MEDS: BALSAM PERU/CASTOR OIL 60 GM TUBE TOP ×2 (10:11→20:25)
[2017-08-02] MEDS: RIFAXIMIN 550 MG TAB PO ×2 (10:11→20:24)
[2017-08-02] MEDS: FLUCONAZOLE 200 MG TAB PO (10:11)
[2017-08-02] MEDS: THIAMINE 100 MG TAB PO (10:11)
[2017-08-02] MEDS: CITRIC ACID/SODIUM CITRATE 15 ML CUP PO ×2 (10:12→20:24)
[2017-08-02] MEDS: MEROPENEM 500MG/50 ML (PMX) 50 ML IVPB (16:37)
[2017-08-03 05:02] LABS: ADD MAN DIFF? NO
[2017-08-03 05:08] LABS: ABNORMAL IP MESSAGE 1; BASOPHIL # 0.1 10^3/ul (0.0-0.1); BASOPHILS % 0.3 % (0.0-2.0); EOSINOPHILS # 0.2 10^3/ul (0.0-0.5); EOSINOPHILS % 1.5 % (0.0-7.0); HEMATOCRIT 29.4 % (37.0-47.0); HEMOGLOBIN 10.3 g/dl (12.0-16.0); LYMPHOCYTES # 1.3 10^3/ul (0.8-2.9); LYMPHOCYTES % 8.8 % (15.0-51.0); MEAN CORPUSCULAR HEMOGLOBIN 32.2 pg (29.0-33.0); MEAN CORPUSCULAR VOLUME 91.9 fl (82.0-101.0); MONOCYTE # 1.3 10^3/ul (0.3-0.9); MONOCYTES % 8.6 % (0.0-11.0); NEUTROPHIL # 11.6 10^3/ul (1.6-7.5); NEUTROPHILS % 80.2 % (39.0-77.0); RED CELL DISTRIBUTION WIDTH 14.7 % (11.5-14.5)
[2017-08-03 05:08] LABS: WHITE BLOOD COUNT 14.5 10^3/ul (4.8-10.8)
[2017-08-03 05:42] LABS: ALANINE AMINOTRANSFERASE 34 IU/L (13-69); ALBUMIN 2.5 g/dl (3.3-4.9); ALBUMIN/GLOBULIN RATIO 0.92; ALKALINE PHOSPHATASE 196 IU/L (42-121); ANION GAP 20 (8-16); ASPARTATE AMINO TRANSFERASE 41 IU/L (15-46); BILIRUBIN,INDIRECT 0.4 mg/dl (0-1.1); BILIRUBIN,TOTAL 0.4 mg/dl (0.2-1.3); BLOOD UREA NITROGEN 51 mg/dl (7-20); CALCIUM 8.8 mg/dl (8.4-10.2); CARBON DIOXIDE 19 mmol/L (21-31); CHLORIDE 99 mmol/L (97-110); CREATININE 4.64 mg/dl (0.44-1.00); GLUCOSE 98 mg/dl (70-220); POTASSIUM 4.1 mmol/L (3.5-5.1); SODIUM 134 mmol/L (135-144); TOTAL PROTEIN 5.2 g/dl (6.1-8.1)
[2017-08-03 05:51] LABS: PLATELET COUNT 64 10^3/UL (140-415); POSITIVE DIFF @See below
[2017-08-03] MEDS: PANTOPRAZOLE (EC) 40 MG TAB PO (06:03)
[2017-08-03 07:12] LABS: MAGNESIUM 2.2 mg/dl (1.7-2.5)
[2017-08-03 07:12] LABS: PHOSPHORUS 4.7 mg/dl (2.5-4.9)
[2017-08-03] MEDS: CITRIC ACID/SODIUM CITRATE 15 ML CUP PO ×2 (09:28→20:28)
[2017-08-03] MEDS: RIFAXIMIN 550 MG TAB PO ×2 (09:28→20:28)
[2017-08-03] MEDS: FLUCONAZOLE 200 MG TAB PO (09:28)
[2017-08-03] MEDS: THIAMINE 100 MG TAB PO (09:29)
[2017-08-03] MEDS: BALSAM PERU/CASTOR OIL 60 GM TUBE TOP ×2 (09:30→20:28)
[2017-08-03] MEDS ORDERED: BISACODYL (EC) 5 MG TAB PO (16:00)
[2017-08-03] MEDS ORDERED: MAGNESIUM CITRATE 300 ML BTL PO (17:30)
[2017-08-03] MEDS: MEROPENEM 500MG/50 ML (PMX) 50 ML IVPB (17:48)
[2017-08-03] MEDS: PHYTONADIONE 10 MG in DEXTROSE 5% 50 ML IVPB (18:21)
[2017-08-03] MEDS ORDERED: POLYETHYLENE GLYCOL 3350 119 GM POWDER PO (18:30)
[2017-08-04] MEDS: PANTOPRAZOLE (EC) 40 MG TAB PO (05:44)
[2017-08-04] MEDS ORDERED: POLYETHYLENE GLYCOL 3350 119 GM POWDER PO (06:00)
[2017-08-04 06:15] LABS: ADD MAN DIFF? NO
[2017-08-04 06:23] LABS: ABNORMAL IP MESSAGE 1; BASOPHIL # 0.1 10^3/ul (0.0-0.1); BASOPHILS % 0.4 % (0.0-2.0); EOSINOPHILS # 0.3 10^3/ul (0.0-0.5); EOSINOPHILS % 2.2 % (0.0-7.0); HEMATOCRIT 27.2 % (37.0-47.0); HEMOGLOBIN 9.6 g/dl (12.0-16.0); LYMPHOCYTES # 1.4 10^3/ul (0.8-2.9); LYMPHOCYTES % 11.1 % (15.0-51.0); MEAN CORPUSCULAR HEMOGLOBIN 31.7 pg (29.0-33.0); MEAN CORPUSCULAR HGB CONC 35.3 g/dl (32.0-37.0); MEAN CORPUSCULAR VOLUME 89.8 fl (82.0-101.0); MEAN PLATELET VOLUME 12.9 fl (7.4-10.4); MONOCYTE # 1.1 10^3/ul (0.3-0.9); MONOCYTES % 8.9 % (0.0-11.0); NEUTROPHIL # 9.5 10^3/ul (1.6-7.5); NEUTROPHILS % 76.9 % (39.0-77.0); PLATELET COUNT 59 10^3/UL (140-415); RED BLOOD COUNT 3.03 10^6/ul (4.20-5.40); RED CELL DISTRIBUTION WIDTH 14.5 % (11.5-14.5)
[2017-08-04 06:23] LABS: WHITE BLOOD COUNT 12.4 10^3/ul (4.8-10.8)
[2017-08-04 06:34] LABS: POSITIVE DIFF @See below
[2017-08-04 06:58] LABS: PHOSPHORUS 4.5 mg/dl (2.5-4.9)
[2017-08-04 06:58] LABS: MAGNESIUM 2.1 mg/dl (1.7-2.5)
[2017-08-04 07:20] LABS: ALANINE AMINOTRANSFERASE 32 IU/L (13-69); ALBUMIN 2.3 g/dl (3.3-4.9); ALBUMIN/GLOBULIN RATIO 0.85; ALKALINE PHOSPHATASE 205 IU/L (42-121); ANION GAP 18 (8-16); ASPARTATE AMINO TRANSFERASE 42 IU/L (15-46); BILIRUBIN,INDIRECT 0.4 mg/dl (0-1.1); BILIRUBIN,TOTAL 0.4 mg/dl (0.2-1.3); BLOOD UREA NITROGEN 56 mg/dl (7-20); CALCIUM 8.9 mg/dl (8.4-10.2); CARBON DIOXIDE 22 mmol/L (21-31); CHLORIDE 99 mmol/L (97-110); CREATININE 4.73 mg/dl (0.44-1.00); GLUCOSE 94 mg/dl (70-220); POTASSIUM 3.9 mmol/L (3.5-5.1); SODIUM 135 mmol/L (135-144)
[2017-08-04] MEDS ORDERED: BISACODYL (EC) 5 MG TAB PO (08:00)
[2017-08-04] MEDS: THIAMINE 100 MG TAB PO (08:51)
[2017-08-04] MEDS: RIFAXIMIN 550 MG TAB PO ×2 (08:51→21:36)
[2017-08-04] MEDS: PHYTONADIONE 10 MG in DEXTROSE 5% 50 ML IVPB (08:51)
[2017-08-04] MEDS: FLUCONAZOLE 200 MG TAB PO (08:51)
[2017-08-04] MEDS: CITRIC ACID/SODIUM CITRATE 15 ML CUP PO ×2 (08:51→21:36)
[2017-08-04] MEDS: BISACODYL (EC) 5 MG TAB PO ×2 (08:52→18:16)
[2017-08-04] MEDS: BALSAM PERU/CASTOR OIL 60 GM TUBE TOP ×2 (09:00→21:37)
[2017-08-04] MEDS: PEG/ELECTROLYTES 4L BTL PO ×2 (11:59→18:16)
[2017-08-04] MEDS: morphine 2 MG INJ IV ×2 (14:59→22:10)
[2017-08-04] MEDS: MEROPENEM 500MG/50 ML (PMX) 50 ML IVPB (16:57)
[2017-08-05] MEDS: morphine 2 MG INJ IV ×2 (04:17→09:11)
[2017-08-05] MEDS: PANTOPRAZOLE (EC) 40 MG TAB PO (06:15)
[2017-08-05] MEDS: RIFAXIMIN 550 MG TAB PO ×2 (08:52→21:45)
[2017-08-05] MEDS: FLUCONAZOLE 200 MG TAB PO (08:52)
[2017-08-05] MEDS: CITRIC ACID/SODIUM CITRATE 15 ML CUP PO ×2 (08:52→21:44)
[2017-08-05] MEDS: THIAMINE 100 MG TAB PO (08:52)
[2017-08-05] MEDS: BALSAM PERU/CASTOR OIL 60 GM TUBE TOP ×2 (08:53→21:45)
[2017-08-05 10:17] LABS: ADD MAN DIFF? NO
[2017-08-05 10:26] LABS: ABNORMAL IP MESSAGE 1; BASOPHIL # 0.1 10^3/ul (0.0-0.1); BASOPHILS % 0.4 % (0.0-2.0); EOSINOPHILS # 0.3 10^3/ul (0.0-0.5); EOSINOPHILS % 2.4 % (0.0-7.0); HEMATOCRIT 29.8 % (37.0-47.0); HEMOGLOBIN 10.4 g/dl (12.0-16.0); LYMPHOCYTES # 1.8 10^3/ul (0.8-2.9); LYMPHOCYTES % 12.8 % (15.0-51.0); MEAN CORPUSCULAR HGB CONC 34.9 g/dl (32.0-37.0); MEAN CORPUSCULAR VOLUME 91.7 fl (82.0-101.0); MONOCYTE # 1.1 10^3/ul (0.3-0.9); MONOCYTES % 8.2 % (0.0-11.0); NEUTROPHIL # 10.5 10^3/ul (1.6-7.5); NEUTROPHILS % 75.6 % (39.0-77.0); PLATELET COUNT 54 10^3/UL (140-415); RED BLOOD COUNT 3.25 10^6/ul (4.20-5.40); RED CELL DISTRIBUTION WIDTH 14.8 % (11.5-14.5)
[2017-08-05 10:26] LABS: WHITE BLOOD COUNT 13.9 10^3/ul (4.8-10.8)
[2017-08-05 10:27] LABS: POSITIVE DIFF @See below
[2017-08-05 10:41] LABS: ALANINE AMINOTRANSFERASE 29 IU/L (13-69); ALBUMIN 2.4 g/dl (3.3-4.9); ALBUMIN/GLOBULIN RATIO 0.92; ALKALINE PHOSPHATASE 249 IU/L (42-121); ANION GAP 21 (8-16); ASPARTATE AMINO TRANSFERASE 44 IU/L (15-46); BILIRUBIN,INDIRECT 0.4 mg/dl (0-1.1); BILIRUBIN,TOTAL 0.4 mg/dl (0.2-1.3); BLOOD UREA NITROGEN 55 mg/dl (7-20); CALCIUM 8.7 mg/dl (8.4-10.2); CARBON DIOXIDE 19 mmol/L (21-31); CHLORIDE 98 mmol/L (97-110); CREATININE 4.77 mg/dl (0.44-1.00); GLUCOSE 96 mg/dl (70-220); POTASSIUM 3.7 mmol/L (3.5-5.1); SODIUM 134 mmol/L (135-144)
[2017-08-05 10:47] LABS: INR 1.31; PROTIME 16.5 Sec (11.9-14.9); PT RATIO 1.3
[2017-08-05 10:48] LABS: PARTIAL THROMBOPLASTIN TIME 45.6 Sec (25.0-35.0)
[2017-08-05 10:50] LABS: PHOSPHORUS 5.1 mg/dl (2.5-4.9)
[2017-08-05 10:52] LABS: AMMONIA < 9 umol/l (9-30)
[2017-08-05] MEDS: MEROPENEM 500MG/50 ML (PMX) 50 ML IVPB (17:07)
[2017-08-05] MEDS: DIPHENHYDRAMINE 50 MG INJ IV (17:11)
[2017-08-06] MEDS: PANTOPRAZOLE (EC) 40 MG TAB PO (05:05)
[2017-08-06 05:53] LABS: ADD MAN DIFF? NO
[2017-08-06 05:56] LABS: WHITE BLOOD COUNT 13.6 10^3/ul (4.8-10.8)
[2017-08-06 05:56] LABS: ABNORMAL IP MESSAGE 1; BASOPHIL # 0.1 10^3/ul (0.0-0.1); BASOPHILS % 0.4 % (0.0-2.0); EOSINOPHILS # 0.3 10^3/ul (0.0-0.5); EOSINOPHILS % 2.2 % (0.0-7.0); HEMATOCRIT 28.1 % (37.0-47.0); HEMOGLOBIN 9.8 g/dl (12.0-16.0); LYMPHOCYTES # 1.9 10^3/ul (0.8-2.9); LYMPHOCYTES % 14.3 % (15.0-51.0); MEAN CORPUSCULAR HGB CONC 34.9 g/dl (32.0-37.0); MEAN CORPUSCULAR VOLUME 91.8 fl (82.0-101.0); MONOCYTE # 1.1 10^3/ul (0.3-0.9); MONOCYTES % 7.8 % (0.0-11.0); NEUTROPHIL # 10.2 10^3/ul (1.6-7.5); RED BLOOD COUNT 3.06 10^6/ul (4.20-5.40); RED CELL DISTRIBUTION WIDTH 15.2 % (11.5-14.5)
[2017-08-06 06:24] LABS: PHOSPHORUS 5.3 mg/dl (2.5-4.9)
[2017-08-06 06:32] LABS: ALANINE AMINOTRANSFERASE 28 IU/L (13-69); ALBUMIN 2.3 g/dl (3.3-4.9); ALBUMIN/GLOBULIN RATIO 0.82; ALKALINE PHOSPHATASE 244 IU/L (42-121); ANION GAP 21 (8-16); ASPARTATE AMINO TRANSFERASE 41 IU/L (15-46); BILIRUBIN,INDIRECT 0.4 mg/dl (0-1.1); BILIRUBIN,TOTAL 0.4 mg/dl (0.2-1.3); BLOOD UREA NITROGEN 60 mg/dl (7-20); CARBON DIOXIDE 20 mmol/L (21-31); CHLORIDE 97 mmol/L (97-110); CREATININE 5.05 mg/dl (0.44-1.00); GLUCOSE 98 mg/dl (70-220); POTASSIUM 4.1 mmol/L (3.5-5.1); SODIUM 134 mmol/L (135-144); TOTAL PROTEIN 5.1 g/dl (6.1-8.1)
[2017-08-06 07:19] LABS: PLATELET COUNT 69 10^3/UL (140-415); POSITIVE DIFF @See below
[2017-08-06] MEDS: CITRIC ACID/SODIUM CITRATE 15 ML CUP PO ×2 (09:36→20:41)
[2017-08-06] MEDS: BALSAM PERU/CASTOR OIL 60 GM TUBE TOP ×2 (09:36→20:42)
[2017-08-06] MEDS: THIAMINE 100 MG TAB PO (09:36)
[2017-08-06] MEDS: RIFAXIMIN 550 MG TAB PO ×2 (09:36→20:41)
[2017-08-06] MEDS: ALBUMIN HUMAN 25% 100 ML IV ×2 (09:43→17:09)
[2017-08-06 11:28] LABS: ADD UMIC YES; UR AMORPHOUS CRYSTAL FEW /HPF (NONE SEEN); UR ASCORBIC ACID NEGATIVE (NEGATIVE); UR BACTERIA FEW /HPF (NONE SEEN); UR BILIRUBIN (Dip) NEGATIVE (NEGATIVE); UR BLOOD (Dip) 3+ mg/dL (NEGATIVE); UR CLARITY CLOUDY (CLEAR); UR COLOR YELLOW (YELLOW); UR GLUCOSE (Dip) 1+ mg/dL (NEGATIVE); UR KETONES (Dip) NEGATIVE (NEGATIVE); UR LEUKOCYTE ESTERASE (Dip) 3+ Leu/ul (NEGATIVE); UR NITRITE (Dip) NEGATIVE (NEGATIVE); UR NONSQUAMOUS EPITHELIAL CELL 2 /HPF (NONE SEEN); UR RBC 129 /HPF (0-5); UR SPECIFIC GRAVITY (Dip) 1.012 (1.003-1.030); UR TOTAL PROTEIN (Dip) 2+ mg/dl (NEGATIVE); UR UROBILINOGEN (Dip) NEGATIVE (NEGATIVE); UR WBC 40 /HPF (0-5)
[2017-08-06] MEDS: DIPHENHYDRAMINE 50 MG INJ IV (22:21)
[2017-08-07] MEDS: ALBUMIN HUMAN 25% 100 ML IV (00:49)
[2017-08-07] MEDS: PANTOPRAZOLE (EC) 40 MG TAB PO (05:26)
[2017-08-07] MEDS: BALSAM PERU/CASTOR OIL 60 GM TUBE TOP ×2 (09:04→21:34)
[2017-08-07] MEDS: CITRIC ACID/SODIUM CITRATE 15 ML CUP PO ×2 (09:05→21:32)
[2017-08-07] MEDS: RIFAXIMIN 550 MG TAB PO ×2 (09:05→21:32)
[2017-08-07] MEDS: THIAMINE 100 MG TAB PO (09:05)
[2017-08-07] MEDS: morphine 2 MG INJ IV (09:13)
[2017-08-07 12:15] LABS: ANION GAP 21 (8-16); BLOOD UREA NITROGEN 61 mg/dl (7-20); CARBON DIOXIDE 20 mmol/L (21-31); CHLORIDE 97 mmol/L (97-110); GLUCOSE 89 mg/dl (70-220); POTASSIUM 3.6 mmol/L (3.5-5.1); SODIUM 134 mmol/L (135-144)
[2017-08-07 12:44] LABS: AMMONIA 32 umol/l (9-30)
[2017-08-07] MEDS: ZYVOX 600 MG TAB PO ×2 (15:24→21:32)
[2017-08-07] MEDS: FOSFOMYCIN 3 GM PACKET PO (15:24)
[2017-08-08] MEDS: PANTOPRAZOLE (EC) 40 MG TAB PO (05:45)
[2017-08-08 08:00] LABS: ADD MAN DIFF? NO; HAAIG REFLEX REFLEX FILED
[2017-08-08 08:08] LABS: WHITE BLOOD COUNT 13.2 10^3/ul (4.8-10.8)
[2017-08-08 08:08] LABS: ABNORMAL IP MESSAGE 1; BASOPHIL # 0.1 10^3/ul (0.0-0.1); BASOPHILS % 0.4 % (0.0-2.0); EOSINOPHILS # 0.2 10^3/ul (0.0-0.5); EOSINOPHILS % 1.4 % (0.0-7.0); HEMATOCRIT 26.2 % (37.0-47.0); HEMOGLOBIN 9.2 g/dl (12.0-16.0); LYMPHOCYTES # 1.2 10^3/ul (0.8-2.9); LYMPHOCYTES % 9.4 % (15.0-51.0); MEAN CORPUSCULAR HEMOGLOBIN 31.9 pg (29.0-33.0); MEAN CORPUSCULAR HGB CONC 35.1 g/dl (32.0-37.0); MONOCYTE # 1.2 10^3/ul (0.3-0.9); MONOCYTES % 8.7 % (0.0-11.0); NEUTROPHIL # 10.5 10^3/ul (1.6-7.5); NEUTROPHILS % 79.5 % (39.0-77.0); PLATELET COUNT 55 10^3/UL (140-415); RED BLOOD COUNT 2.88 10^6/ul (4.20-5.40); RED CELL DISTRIBUTION WIDTH 14.9 % (11.5-14.5)
[2017-08-08 08:12] LABS: POSITIVE DIFF @See below
[2017-08-08] MEDS: CITRIC ACID/SODIUM CITRATE 15 ML CUP PO ×2 (08:36→20:48)
[2017-08-08] MEDS: RIFAXIMIN 550 MG TAB PO ×2 (08:36→20:49)
[2017-08-08] MEDS: THIAMINE 100 MG TAB PO (08:36)
[2017-08-08] MEDS: BALSAM PERU/CASTOR OIL 60 GM TUBE TOP ×2 (08:36→20:49)
[2017-08-08] MEDS: ZYVOX 600 MG TAB PO ×2 (08:36→20:49)
[2017-08-08 08:44] LABS: ANION GAP 23 (8-16); BLOOD UREA NITROGEN 63 mg/dl (7-20); CALCIUM 9.6 mg/dl (8.4-10.2); CARBON DIOXIDE 24 mmol/L (21-31); CHLORIDE 95 mmol/L (97-110); CREATININE 5.62 mg/dl (0.44-1.00); GLUCOSE 103 mg/dl (70-220); POTASSIUM 4.5 mmol/L (3.5-5.1); SODIUM 137 mmol/L (135-144)
[2017-08-08 10:02] LABS: HEPATITIS B CORE ANTIBODY NEGATIVE (NEGATIVE); HEPATITIS B SURFACE ANTIGEN NEGATIVE (NEGATIVE); HEPATITIS C VIRAL ANTIBODY NEGATIVE (NEGATIVE); HIV 1&2 ANTIBODY NEGATIVE (NEGATIVE)
[2017-08-08] MEDS: LACTULOSE 30ML CUP PO ×2 (17:29→20:49)
[2017-08-09] MEDS: LACTULOSE 30ML CUP PO ×2 (00:54→05:28)
[2017-08-09] MEDS: ALBUMIN HUMAN 25% 100 ML IV (03:31)
[2017-08-09] MEDS: PANTOPRAZOLE (EC) 40 MG TAB PO (05:28)
[2017-08-09 06:44] LABS: ADD MAN DIFF? NO
[2017-08-09 06:47] LABS: WHITE BLOOD COUNT 15.8 10^3/ul (4.8-10.8)
[2017-08-09 06:47] LABS: ABNORMAL IP MESSAGE 1; BASOPHILS % 0.2 % (0.0-2.0); EOSINOPHILS # 0.1 10^3/ul (0.0-0.5); EOSINOPHILS % 0.8 % (0.0-7.0); HEMOGLOBIN 8.6 g/dl (12.0-16.0); LYMPHOCYTES # 1.1 10^3/ul (0.8-2.9); LYMPHOCYTES % 7.1 % (15.0-51.0); MEAN CORPUSCULAR HEMOGLOBIN 31.4 pg (29.0-33.0); MEAN CORPUSCULAR HGB CONC 34.4 g/dl (32.0-37.0); MEAN CORPUSCULAR VOLUME 91.2 fl (82.0-101.0); MONOCYTE # 1.3 10^3/ul (0.3-0.9); MONOCYTES % 8.5 % (0.0-11.0); NEUTROPHIL # 13.1 10^3/ul (1.6-7.5); NEUTROPHILS % 82.7 % (39.0-77.0); PLATELET COUNT 47 10^3/UL (140-415); RED BLOOD COUNT 2.74 10^6/ul (4.20-5.40); RED CELL DISTRIBUTION WIDTH 14.9 % (11.5-14.5)
[2017-08-09 06:53] LABS: POSITIVE DIFF @See below
[2017-08-09 07:23] LABS: ANION GAP 23 (8-16); BLOOD UREA NITROGEN 45 mg/dl (7-20); CALCIUM 9.1 mg/dl (8.4-10.2); CARBON DIOXIDE 24 mmol/L (21-31); CHLORIDE 97 mmol/L (97-110); GLUCOSE 99 mg/dl (70-220); POTASSIUM 3.6 mmol/L (3.5-5.1); SODIUM 140 mmol/L (135-144)
[2017-08-09] MEDS: THIAMINE 100 MG TAB PO (08:57)
[2017-08-09] MEDS: CITRIC ACID/SODIUM CITRATE 15 ML CUP PO ×2 (08:57→21:41)
[2017-08-09] MEDS: RIFAXIMIN 550 MG TAB PO ×2 (08:57→21:41)
[2017-08-09] MEDS: ZYVOX 600 MG TAB PO ×2 (08:57→21:41)
[2017-08-09] MEDS: BALSAM PERU/CASTOR OIL 60 GM TUBE TOP ×2 (08:59→21:00)
[2017-08-09] MEDS: FENTAnyl 50 MCG/ML VIAL (15:10)
[2017-08-09] MEDS: PROPOFOL 20 ML (15:10)
[2017-08-09] MEDS: MIDAZOLAM 1 MG/ML 2 ML INJ (15:10)
[2017-08-09] MEDS: MESALAMINE (SR) 250 MG CAP PO ×2 (18:28→21:41)
[2017-08-10] MEDS: morphine 2 MG INJ IV (00:46)
[2017-08-10] MEDS: PANTOPRAZOLE (EC) 40 MG TAB PO (05:13)
[2017-08-10] MEDS: BALSAM PERU/CASTOR OIL 60 GM TUBE TOP ×3 (06:00→21:00)
[2017-08-10 06:23] LABS: ADD MAN DIFF? NO
[2017-08-10 06:41] LABS: WHITE BLOOD COUNT 13.1 10^3/ul (4.8-10.8)
[2017-08-10 06:41] LABS: ABNORMAL IP MESSAGE 1; BASOPHIL # 0.1 10^3/ul (0.0-0.1); BASOPHILS % 0.4 % (0.0-2.0); EOSINOPHILS # 0.2 10^3/ul (0.0-0.5); EOSINOPHILS % 1.4 % (0.0-7.0); HEMATOCRIT 23.6 % (37.0-47.0); HEMOGLOBIN 8.4 g/dl (12.0-16.0); LYMPHOCYTES # 1.6 10^3/ul (0.8-2.9); LYMPHOCYTES % 12.2 % (15.0-51.0); MEAN CORPUSCULAR HEMOGLOBIN 31.6 pg (29.0-33.0); MEAN CORPUSCULAR HGB CONC 35.6 g/dl (32.0-37.0); MEAN CORPUSCULAR VOLUME 88.7 fl (82.0-101.0); MEAN PLATELET VOLUME 13.5 fl (7.4-10.4); MONOCYTE # 1.4 10^3/ul (0.3-0.9); MONOCYTES % 10.8 % (0.0-11.0); NEUTROPHIL # 9.8 10^3/ul (1.6-7.5); NEUTROPHILS % 74.9 % (39.0-77.0); RED BLOOD COUNT 2.66 10^6/ul (4.20-5.40); RED CELL DISTRIBUTION WIDTH 15.3 % (11.5-14.5)
[2017-08-10 06:59] LABS: PLATELET COUNT 47 10^3/UL (140-415); POSITIVE DIFF @See below
[2017-08-10 07:06] LABS: ANION GAP 20 (8-16); BLOOD UREA NITROGEN 50 mg/dl (7-20); CALCIUM 8.7 mg/dl (8.4-10.2); CARBON DIOXIDE 24 mmol/L (21-31); CHLORIDE 100 mmol/L (97-110); CREATININE 4.55 mg/dl (0.44-1.00); GLUCOSE 87 mg/dl (70-220); POTASSIUM 3.5 mmol/L (3.5-5.1); SODIUM 140 mmol/L (135-144)
[2017-08-10] MEDS: THIAMINE 100 MG TAB PO (08:43)
[2017-08-10] MEDS: MESALAMINE (SR) 250 MG CAP PO ×4 (08:43→21:27)
[2017-08-10] MEDS: ZYVOX 600 MG TAB PO ×2 (08:44→21:27)
[2017-08-10] MEDS: RIFAXIMIN 550 MG TAB PO ×2 (08:44→21:27)
[2017-08-10] MEDS: CITRIC ACID/SODIUM CITRATE 15 ML CUP PO ×2 (08:44→21:27)
[2017-08-10] MEDS: SOD CHLORIDE 0.9% 250 ML IV (11:32)
[2017-08-10] MEDS: DEXTROSE 5%-0.45% NACL 1,000 ML IV (12:15)
[2017-08-10] MEDS: MIDODRINE 5 MG TAB PO (12:20)
[2017-08-10] MEDS: ALBUMIN HUMAN 25% 100 ML IV (18:38)
[2017-08-11 05:17] LABS: ADD MAN DIFF? NO
[2017-08-11 05:21] LABS: WHITE BLOOD COUNT 13.3 10^3/ul (4.8-10.8)
[2017-08-11 05:21] LABS: ABNORMAL IP MESSAGE 1; BASOPHIL # 0.1 10^3/ul (0.0-0.1); BASOPHILS % 0.5 % (0.0-2.0); EOSINOPHILS # 0.4 10^3/ul (0.0-0.5); EOSINOPHILS % 2.7 % (0.0-7.0); HEMATOCRIT 24.7 % (37.0-47.0); HEMOGLOBIN 8.4 g/dl (12.0-16.0); LYMPHOCYTES # 1.9 10^3/ul (0.8-2.9); LYMPHOCYTES % 14.1 % (15.0-51.0); MEAN CORPUSCULAR HEMOGLOBIN 30.7 pg (29.0-33.0); MEAN CORPUSCULAR VOLUME 90.1 fl (82.0-101.0); MEAN PLATELET VOLUME 12.6 fl (7.4-10.4); MONOCYTE # 1.2 10^3/ul (0.3-0.9); MONOCYTES % 9.1 % (0.0-11.0); NEUTROPHIL # 9.7 10^3/ul (1.6-7.5); NEUTROPHILS % 73.2 % (39.0-77.0); PLATELET COUNT 47 10^3/UL (140-415); RED BLOOD COUNT 2.74 10^6/ul (4.20-5.40); RED CELL DISTRIBUTION WIDTH 15.1 % (11.5-14.5)
[2017-08-11] MEDS: PANTOPRAZOLE (EC) 40 MG TAB PO (05:24)
[2017-08-11 05:52] LABS: POSITIVE DIFF @See below
[2017-08-11 06:01] LABS: ANION GAP 18 (8-16); BLOOD UREA NITROGEN 47 mg/dl (7-20); CARBON DIOXIDE 25 mmol/L (21-31); CHLORIDE 100 mmol/L (97-110); CREATININE 4.55 mg/dl (0.44-1.00); GLUCOSE 116 mg/dl (70-220); POTASSIUM 3.3 mmol/L (3.5-5.1); SODIUM 140 mmol/L (135-144)
[2017-08-11] MEDS: RIFAXIMIN 550 MG TAB PO ×2 (08:30→20:39)
[2017-08-11] MEDS: ZYVOX 600 MG TAB PO ×2 (08:30→20:39)
[2017-08-11] MEDS: THIAMINE 100 MG TAB PO (08:30)
[2017-08-11] MEDS: CITRIC ACID/SODIUM CITRATE 15 ML CUP PO ×2 (08:30→20:39)
[2017-08-11] MEDS: MESALAMINE (SR) 250 MG CAP PO ×4 (08:30→20:39)
[2017-08-11] MEDS: BALSAM PERU/CASTOR OIL 60 GM TUBE TOP ×2 (08:36→20:40)
[2017-08-11] MEDS: DEXTROSE 5%-0.45% NACL 1,000 ML IV (12:20)
[2017-08-11] MEDS: POTASSIUM CHLORIDE (SR) 20 MEQ TAB PO (12:21)
[2017-08-11] MEDS: ONDANSETRON 4 MG INJ IV (20:41)
[2017-08-11] MEDS: morphine 2 MG INJ IV (22:42)
[2017-08-12] MEDS: PANTOPRAZOLE (EC) 40 MG TAB PO (05:36)
[2017-08-12 06:58] LABS: ADD MAN DIFF? NO
[2017-08-12 07:05] LABS: WHITE BLOOD COUNT 14.4 10^3/ul (4.8-10.8)
[2017-08-12 07:05] LABS: ABNORMAL IP MESSAGE 1; BASOPHIL # 0.1 10^3/ul (0.0-0.1); BASOPHILS % 0.5 % (0.0-2.0); EOSINOPHILS # 0.4 10^3/ul (0.0-0.5); EOSINOPHILS % 2.4 % (0.0-7.0); HEMATOCRIT 26.5 % (37.0-47.0); HEMOGLOBIN 9.1 g/dl (12.0-16.0); LYMPHOCYTES # 1.9 10^3/ul (0.8-2.9); LYMPHOCYTES % 13.2 % (15.0-51.0); MEAN CORPUSCULAR HGB CONC 34.3 g/dl (32.0-37.0); MEAN CORPUSCULAR VOLUME 90.1 fl (82.0-101.0); MEAN PLATELET VOLUME 11.5 fl (7.4-10.4); MONOCYTE # 1.1 10^3/ul (0.3-0.9); MONOCYTES % 7.9 % (0.0-11.0); NEUTROPHIL # 10.9 10^3/ul (1.6-7.5); NEUTROPHILS % 75.7 % (39.0-77.0); RED BLOOD COUNT 2.94 10^6/ul (4.20-5.40); RED CELL DISTRIBUTION WIDTH 15.1 % (11.5-14.5)
[2017-08-12 07:21] LABS: PLATELET COUNT 43 10^3/UL (140-415); POSITIVE DIFF @See below
[2017-08-12 07:27] LABS: ANION GAP 20 (8-16); BLOOD UREA NITROGEN 45 mg/dl (7-20); CARBON DIOXIDE 25 mmol/L (21-31); CHLORIDE 98 mmol/L (97-110); CREATININE 4.77 mg/dl (0.44-1.00); GLUCOSE 111 mg/dl (70-220); POTASSIUM 3.4 mmol/L (3.5-5.1); SODIUM 140 mmol/L (135-144)
[2017-08-12] MEDS: THIAMINE 100 MG TAB PO (08:34)
[2017-08-12] MEDS: RIFAXIMIN 550 MG TAB PO ×2 (08:34→22:26)
[2017-08-12] MEDS: ZYVOX 600 MG TAB PO ×2 (08:34→22:26)
[2017-08-12] MEDS: CITRIC ACID/SODIUM CITRATE 15 ML CUP PO ×2 (08:34→22:34)
[2017-08-12] MEDS: MIDODRINE 5 MG TAB PO ×3 (08:35→17:57)
[2017-08-12] MEDS: MESALAMINE (SR) 250 MG CAP PO ×4 (08:35→22:26)
[2017-08-12] MEDS: LORAZEPAM 2 MG INJ IV (09:56)
[2017-08-12] MEDS: DEXTROSE 5%-0.45% NACL 1,000 ML IV (13:10)
[2017-08-12] MEDS: BALSAM PERU/CASTOR OIL 60 GM TUBE TOP ×2 (13:14→22:36)
[2017-08-12] MEDS: morphine 2 MG INJ IV (13:39)
[2017-08-12] MEDS: ALBUMIN HUMAN 25% 100 ML IV ×2 (18:45→20:01)
[2017-08-13 01:49] LABS: ADD MAN DIFF? NO
[2017-08-13 02:11] LABS: INR 1.89; PROTIME 22.1 Sec (11.9-14.9); PT RATIO 1.7
[2017-08-13 02:13] LABS: PARTIAL THROMBOPLASTIN TIME 55.1 Sec (25.0-35.0)
[2017-08-13 02:15] LABS: ALANINE AMINOTRANSFERASE 25 IU/L (13-69); ALBUMIN 3.1 g/dl (3.3-4.9); ALBUMIN/GLOBULIN RATIO 1.29; ALKALINE PHOSPHATASE 145 IU/L (42-121); ANION GAP 19 (8-16); ASPARTATE AMINO TRANSFERASE 23 IU/L (15-46); BILIRUBIN,INDIRECT 1.2 mg/dl (0-1.1); BILIRUBIN,TOTAL 1.4 mg/dl (0.2-1.3); BLOOD UREA NITROGEN 28 mg/dl (7-20); CALCIUM 8.9 mg/dl (8.4-10.2); CARBON DIOXIDE 25 mmol/L (21-31); CHLORIDE 99 mmol/L (97-110); GLUCOSE 101 mg/dl (70-220); POTASSIUM 3.1 mmol/L (3.5-5.1); SODIUM 140 mmol/L (135-144); TOTAL PROTEIN 5.5 g/dl (6.1-8.1)
[2017-08-13 02:16] LABS: PHOSPHORUS 3.4 mg/dl (2.5-4.9)
[2017-08-13 02:16] LABS: MAGNESIUM 1.8 mg/dl (1.7-2.5)
[2017-08-13 03:35] LABS: WHITE BLOOD COUNT 14.4 10^3/ul (4.8-10.8)
[2017-08-13 03:35] LABS: ABNORMAL IP MESSAGE 1; BASOPHILS % 0.2 % (0.0-2.0); EOSINOPHILS # 0.2 10^3/ul (0.0-0.5); EOSINOPHILS % 1.6 % (0.0-7.0); HEMATOCRIT 19.9 % (37.0-47.0); LYMPHOCYTES # 1.4 10^3/ul (0.8-2.9); MEAN CORPUSCULAR HEMOGLOBIN 31.6 pg (29.0-33.0); MEAN CORPUSCULAR HGB CONC 34.2 g/dl (32.0-37.0); MEAN CORPUSCULAR VOLUME 92.6 fl (82.0-101.0); MEAN PLATELET VOLUME 11.2 fl (7.4-10.4); MONOCYTES % 7.1 % (0.0-11.0); NEUTROPHIL # 11.6 10^3/ul (1.6-7.5); NEUTROPHILS % 80.8 % (39.0-77.0); RED BLOOD COUNT 2.15 10^6/ul (4.20-5.40); RED CELL DISTRIBUTION WIDTH 15.3 % (11.5-14.5)
[2017-08-13 03:39] LABS: PLATELET COUNT 30 10^3/UL (140-415); POSITIVE DIFF @See below
[2017-08-13 03:40] LABS: HEMOGLOBIN 6.8 g/dl (12.0-16.0)
[2017-08-13] MEDS: SOD CHLORIDE 0.9% 500 ML IV (04:30)
[2017-08-13] MEDS: ALBUMIN HUMAN 25% 100 ML IV (05:14)
[2017-08-13] MEDS: PANTOPRAZOLE (EC) 40 MG TAB PO (05:22)
[2017-08-13] MEDS: PHYTONADIONE 10 MG/ML INJ IM (05:23)
[2017-08-13 08:43] LABS: IMMEDIATE SPIN CROSSMATCH 1 2
[2017-08-13] MEDS: ZYVOX 600 MG TAB PO ×2 (09:00→21:00)
[2017-08-13] MEDS: CITRIC ACID/SODIUM CITRATE 15 ML CUP PO ×2 (09:00→22:11)
[2017-08-13] MEDS: LACTULOSE 30ML CUP PO (09:00)
[2017-08-13] MEDS: MESALAMINE (SR) 250 MG CAP PO ×4 (09:00→22:11)
[2017-08-13] MEDS: RIFAXIMIN 550 MG TAB PO ×2 (09:00→21:00)
[2017-08-13] MEDS: THIAMINE 100 MG TAB PO (09:00)
[2017-08-13] MEDS: MIDODRINE 5 MG TAB PO ×3 (09:00→18:05)
[2017-08-13] MEDS: BALSAM PERU/CASTOR OIL 60 GM TUBE TOP (10:48)
[2017-08-13] MEDS: DEXTROSE 5%-0.45% NACL 1,000 ML IV (11:30)
[2017-08-13 15:29] LABS: IMMEDIATE SPIN CROSSMATCH 1
[2017-08-13 17:45] LABS: TYPE AND SCREEN 1
[2017-08-13] MEDS: LORAZEPAM 2 MG INJ IV (19:35)
[2017-08-13] MEDS: morphine 2 MG INJ IV (19:36)
[2017-08-13] MEDS: MEROPENEM 500MG/50 ML (PMX) 50 ML IVPB (22:11)
[2017-08-14] MEDS: BALSAM PERU/CASTOR OIL 60 GM TUBE TOP ×2 (01:22→09:38)
[2017-08-14] MEDS: DEXTROSE 5%-0.45% NACL 1,000 ML IV (05:02)
[2017-08-14] MEDS: PANTOPRAZOLE (EC) 40 MG TAB PO (05:19)
[2017-08-14 05:55] LABS: ADD MAN DIFF? NO
[2017-08-14 06:02] LABS: ABNORMAL IP MESSAGE 1; BASOPHILS % 0.2 % (0.0-2.0); EOSINOPHILS # 0.1 10^3/ul (0.0-0.5); EOSINOPHILS % 0.8 % (0.0-7.0); HEMATOCRIT 24.6 % (37.0-47.0); LYMPHOCYTES # 1.7 10^3/ul (0.8-2.9); LYMPHOCYTES % 11.6 % (15.0-51.0); MEAN CORPUSCULAR HEMOGLOBIN 30.4 pg (29.0-33.0); MEAN CORPUSCULAR HGB CONC 32.5 g/dl (32.0-37.0); MEAN CORPUSCULAR VOLUME 93.5 fl (82.0-101.0); MEAN PLATELET VOLUME 12.7 fl (7.4-10.4); MONOCYTE # 0.7 10^3/ul (0.3-0.9); MONOCYTES % 4.7 % (0.0-11.0); NEUTROPHIL # 11.9 10^3/ul (1.6-7.5); NEUTROPHILS % 82.1 % (39.0-77.0); PLATELET COUNT 38 10^3/UL (140-415); RED BLOOD COUNT 2.63 10^6/ul (4.20-5.40); RED CELL DISTRIBUTION WIDTH 16.4 % (11.5-14.5)
[2017-08-14 06:02] LABS: WHITE BLOOD COUNT 14.4 10^3/ul (4.8-10.8)
[2017-08-14 06:16] LABS: POSITIVE DIFF @See below
[2017-08-14 06:19] LABS: PROTIME 18.4 Sec (11.9-14.9); PT RATIO 1.4
[2017-08-14 06:20] LABS: PARTIAL THROMBOPLASTIN TIME 45.8 Sec (25.0-35.0)
[2017-08-14 06:22] LABS: AMMONIA 35 umol/l (9-30)
[2017-08-14 06:28] LABS: ALANINE AMINOTRANSFERASE 27 IU/L (13-69); ALBUMIN 3.3 g/dl (3.3-4.9); ALBUMIN/GLOBULIN RATIO 1.32; ALKALINE PHOSPHATASE 148 IU/L (42-121); ANION GAP 18 (8-16); ASPARTATE AMINO TRANSFERASE 26 IU/L (15-46); BILIRUBIN,TOTAL 1.4 mg/dl (0.2-1.3); BLOOD UREA NITROGEN 31 mg/dl (7-20); CALCIUM 9.2 mg/dl (8.4-10.2); CARBON DIOXIDE 25 mmol/L (21-31); CHLORIDE 101 mmol/L (97-110); GLUCOSE 79 mg/dl (70-220); POTASSIUM 3.6 mmol/L (3.5-5.1); SODIUM 140 mmol/L (135-144); TOTAL PROTEIN 5.8 g/dl (6.1-8.1)
[2017-08-14] MEDS: MIDODRINE 5 MG TAB PO ×3 (09:00→17:00)
[2017-08-14] MEDS: THIAMINE 100 MG TAB PO (09:00)
[2017-08-14] MEDS: CITRIC ACID/SODIUM CITRATE 15 ML CUP PO ×2 (09:00→21:00)
[2017-08-14] MEDS: RIFAXIMIN 550 MG TAB PO ×2 (09:00→21:00)
[2017-08-14] MEDS: LACTULOSE 30ML CUP PO (09:00)
[2017-08-14] MEDS: ZYVOX 600 MG TAB PO ×2 (09:00→21:00)
[2017-08-14] MEDS: MESALAMINE (SR) 250 MG CAP PO ×4 (09:00→21:00)
[2017-08-14] MEDS: ALBUMIN HUMAN 25% 100 ML IV ×2 (11:30→12:35)
[2017-08-14] MEDS: LACTULOSE ENEMA 1,000 ML BTL PR (17:46)
[2017-08-14] MEDS: MEROPENEM 500MG/50 ML (PMX) 50 ML IVPB (17:46)
[2017-08-14] MEDS: LORAZEPAM 2 MG INJ IV (23:36)
[2017-08-15] MEDS: DILTIAZEM 25 MG INJ IV (05:08)
[2017-08-15] MEDS: BALSAM PERU/CASTOR OIL 60 GM TUBE TOP ×2 (05:09→08:30)
[2017-08-15] MEDS: PANTOPRAZOLE 40 MG INJ IV (05:09)
[2017-08-15 05:46] LABS: ADD MAN DIFF? NO
[2017-08-15 05:51] LABS: ABNORMAL IP MESSAGE 1; BASOPHILS % 0.1 % (0.0-2.0); EOSINOPHILS % 0.1 % (0.0-7.0); HEMATOCRIT 24.9 % (37.0-47.0); HEMOGLOBIN 8.2 g/dl (12.0-16.0); LYMPHOCYTES % 6.4 % (15.0-51.0); MEAN CORPUSCULAR HEMOGLOBIN 31.3 pg (29.0-33.0); MEAN CORPUSCULAR HGB CONC 32.9 g/dl (32.0-37.0); MEAN PLATELET VOLUME 11.7 fl (7.4-10.4); MONOCYTE # 0.7 10^3/ul (0.3-0.9); MONOCYTES % 4.3 % (0.0-11.0); NEUTROPHILS % 88.7 % (39.0-77.0); NUCLEATED RED BLOOD CELLS # 0.1 10^3/ul (0.0-0.0); NUCLEATED RED BLOOD CELLS% 0.5 /100WBC (0.0-0.0); RED BLOOD COUNT 2.62 10^6/ul (4.20-5.40); RED CELL DISTRIBUTION WIDTH 16.3 % (11.5-14.5)
[2017-08-15 05:51] LABS: WHITE BLOOD COUNT 15.7 10^3/ul (4.8-10.8)
[2017-08-15] MEDS: LACTULOSE ENEMA 1,000 ML BTL PR ×2 (05:56)
[2017-08-15 05:57] LABS: PLATELET COUNT 44 10^3/UL (140-415); POSITIVE DIFF @See below
[2017-08-15 06:25] LABS: MAGNESIUM 1.9 mg/dl (1.7-2.5)
[2017-08-15 06:25] LABS: PHOSPHORUS 4.7 mg/dl (2.5-4.9)
[2017-08-15] MEDS: PHENYLephrine 20MG IN 250 ML 250 ML IV (06:35)
[2017-08-15 06:52] LABS: ALANINE AMINOTRANSFERASE 26 IU/L (13-69); ALBUMIN 3.6 g/dl (3.3-4.9); ALKALINE PHOSPHATASE 156 IU/L (42-121); ANION GAP 22 (8-16); ASPARTATE AMINO TRANSFERASE 29 IU/L (15-46); BILIRUBIN,TOTAL 1.5 mg/dl (0.2-1.3); BLOOD UREA NITROGEN 21 mg/dl (7-20); CALCIUM 8.9 mg/dl (8.4-10.2); CARBON DIOXIDE 23 mmol/L (21-31); CHLORIDE 100 mmol/L (97-110); CREATININE 2.87 mg/dl (0.44-1.00); GLUCOSE 139 mg/dl (70-220); POTASSIUM 3.9 mmol/L (3.5-5.1); SODIUM 141 mmol/L (135-144)
[2017-08-15] MEDS: RIFAXIMIN 550 MG TAB PO (08:01)
[2017-08-15] MEDS: CITRIC ACID/SODIUM CITRATE 15 ML CUP PO (08:01)
[2017-08-15] MEDS: ZYVOX 600 MG TAB PO (08:01)
[2017-08-15] MEDS: MIDODRINE 5 MG TAB PO (08:01)
[2017-08-15] MEDS: MESALAMINE (SR) 250 MG CAP PO (08:01)
[2017-08-15] MEDS: THIAMINE 100 MG TAB PO (08:01)
[2017-08-15] MEDS: PHENYLephrine 160 MG in DEXTROSE 5% 484 ML IV (08:23)
[2017-08-15] MEDS: VASOPRESSIN 60 UNIT in DEXTROSE 5% 57 ML IV (08:30)
[2017-08-15] MEDS ORDERED: PHENYLephrine 40 MG in DEXTROSE 5% 496 ML IV (09:00)
[2017-08-15] MEDS ORDERED: DILTIAZEM 25 MG INJ IV (10:00)
[2017-08-15] MEDS ORDERED: morphine 2 MG INJ IV ×2 (11:00)
[2017-08-15] MEDS: morphine (DRIP) 100 MG/100 ML 100 ML IV (11:41)
== END 2017-08-15 15:05 | disposition expired | DRG 371 ==
LOC: ICU 08-13 12:09 → E/R 10:46 → PP2 13:48
PROC: 0W9G3ZX Drainage of Peritoneal Cavity, Percutaneous Approach, Diagnostic (ICD-10-PCS; principal; 2017-08-09 14:30)
PROC: 0W9G3ZX Drainage of Peritoneal Cavity, Percutaneous Approach, Diagnostic (ICD-10-PCS; 2017-08-09 14:30)
PROC: 06HN33Z Insertion of Infusion Device into Left Femoral Vein, Percutaneous Approach (ICD-10-PCS; 2017-08-09 14:30)
PROC: 0DB68ZX Excision of Stomach, Via Natural or Artificial Opening Endoscopic, Diagnostic (ICD-10-PCS; 2017-08-09 14:30)
PROC: 0DBN8ZX Excision of Sigmoid Colon, Via Natural or Artificial Opening Endoscopic, Diagnostic (ICD-10-PCS; 2017-08-09 14:30)
PROC: 5A1D70Z Performance of Urinary Filtration, Intermittent, Less than 6 Hours Per Day (ICD-10-PCS; 2017-08-09 14:30)
PROC: 30233K1 Transfusion of Nonautologous Frozen Plasma into Peripheral Vein, Percutaneous Approach (ICD-10-PCS; 2017-08-09 14:30)
PROC: 30233N1 Transfusion of Nonautologous Red Blood Cells into Peripheral Vein, Percutaneous Approach (ICD-10-PCS; 2017-08-09 14:30)
PROC: 30233R1 Transfusion of Nonautologous Platelets into Peripheral Vein, Percutaneous Approach (ICD-10-PCS; 2017-08-09 14:30)
DX: K65.2 Spontaneous bacterial peritonitis (principal); K76.7 Hepatorenal syndrome; R65.21 Severe sepsis with septic shock; J69.0 Pneumonitis due to inhalation of food and vomit; A41.9 Sepsis, unspecified organism; N17.9 Acute kidney failure, unspecified; R64 Cachexia; J91.8 Pleural effusion in other conditions classified elsewhere; K56.609 Unspecified intestinal obstruction, unspecified as to partial versus complete obstruction; E87.1 Hypo-osmolality and hyponatremia; K50.10 Crohn's disease of large intestine without complications; K56.7 Ileus, unspecified; D68.4 Acquired coagulation factor deficiency; B37.41 Candidal cystitis and urethritis; E87.2 Acidosis; N39.0 Urinary tract infection, site not specified; D69.6 Thrombocytopenia, unspecified; K72.90 Hepatic failure, unspecified without coma; K70.31 Alcoholic cirrhosis of liver with ascites; K20.9 Esophagitis, unspecified; K29.70 Gastritis, unspecified, without bleeding; K64.8 Other hemorrhoids; K82.8 Other specified diseases of gallbladder; Z66 Do not resuscitate; Z51.5 Encounter for palliative care; D63.8 Anemia in other chronic diseases classified elsewhere; E87.6 Hypokalemia; F10.10 Alcohol abuse, uncomplicated; F41.9 Anxiety disorder, unspecified; I46.8 Cardiac arrest due to other underlying condition; B95.2 Enterococcus as the cause of diseases classified elsewhere; Z16.21 Resistance to vancomycin; Z68.24 Body mass index [BMI] 24.0-24.9, adult; Z87.891 Personal history of nicotine dependence
CPT/HCPCS: 36415; 36430; 71045; 74176; 74250; 76604; 76705; 76775; 78226; 80048; 80053; 80061; 80076; 81001; 82040; 82140; 82150; 82306; 82945; 83036; 83605; 83615; 83690; 83735; 83880; 84100; 84132; 84157; 84443; 84484; 85025; 85610; 85730; 86038; 86255; 86644; 86703; 86704; 86706; 86709; 86803; 86850; 86900; 86901; 86920; 87040; 87070; 87075; 87081; 87086; 87102; 87116; 87340; 88104; 88305; 88312; 89051; 90935; 93005; 93306; 96374; 96375; 97110; 97162; 97530; 99291-25